=== PATIENT | male | born 1950 | race Caucasian/White ===

== ENCOUNTER 2016-10-13 22:36 | Emergency (ER) | payer OTHER ==
[2016-10-13 22:42] VITALS: BP 128/92; PULSE 88; TEMP 98.9; BMI 20.7
[2016-10-13] MEDS ORDERED: ONDANSETRON 4 MG/2 ML VIAL IVPB ONE (22:47)
[2016-10-13] MEDS ORDERED: SODIUM CHLORIDE 1,000 ML IV ONE (22:47)
--- NOTE | 2016-10-13 22:53 | PDOC ---
History of Present Illness - General Chief Complaint: Nausea/Vomiting Stated Complaint: N/V/D Time Seen by Provider: 10/13/16 22:46 History Source: Patient Exam Limitations: No Limitations - History of Present Illness Initial Comments: 10/13/16 23:02 This is a 66-year-old male with chronic neck pain for which she takes Dilaudid. Patient comes in complaining of nausea vomiting and diarrhea 3 days now. Patient said it is associated with some crampy abdominal pain and the last time he vomited was yesterday however has had multiple episodes of diarrhea today. Patient denies any recent travel or eating out at fast food restaurants. Patient denies anybody else that he knows with similar symptoms. Patient denies any chest pain cough congestion or respiratory symptoms. PAST MEDICAL HISTORY: no significant history PAST SURGICAL HISTORY: no significant history FAMILY HISTORY: no pertinant history MEDICATIONS: reviewed ALLERGIES: As per nursing notes Review of Systems General: No fevers or chills, no weakness, no weight loss HEENT: No change in vision. No sore throat,. No ear pain CardioVascular: No chest pain or shortness of breath Respiratory:No cough, or wheezing. Gastrointestinal: + nausea, + vomitting, + diarrhea no constipation, No rectal bleeding Genitourinary: No dysuria, hematuria, or frequency Musculoskeletal: No joint or muscle pain or swelling Neurologic: No headache, vertigo, dizziness or loss of consciousness Psychiatric: nor depression Skin: No rashes or easy bruising Endocrine: no increased thirst or abnormal weight change Allergic: no skin or latex allergy All other systems reviewed and normal Exam: General: Well-nourished well-developed individual, no acute distress HEENT: Throat: Normal, tonsils normal, no erythema or exudate Neck: Supple, no meningeal signs, no lymphadenopathy Eyes::Pupils equal reactive and round, extraocular motion intact Chest: Nontender to palpation Cardiac: S1-S2 normal, regular rate and rhythm, no murmurs rubs or gallops Respiratory: Lungs clear to auscultation bilateral Abdomen: Soft, no distended, normal bowel sound, mildly tender to palpation LLQ , no guarding or rebound. Extremities: Warm, dry, no cyanosis, clubbing, or edema Skin: No rashes Neuro: Alert and oriented x3, nonfocal exam, grossly intact, normal gait Psych: Normal mood and affect 10/14/16 00:15 Reevaluation patient feels better however he did still have some diarrhea here in the emergency room. Assessment and plan: This is a 66-year-old male who is relatively healthy but does take chronic opioids for chronic pain. Patient said he has not run out of his opioids and in looking at the [facility] prescription monitoring program he did get 120 Dilaudid tablets approximately one and half weeks ago. Patient otherwise denies any Fevers or chills. Patient has been having some intermittent crampy abdominal pain associated with the diarrhea and nausea. Patient's workup was unremarkable his white count was 11.7 but there was no left shift His chemistries were all completely normal Discussed with patient the importance of getting some oral rehydration solutions such as Gatorade or Powerade or Pedialyte and take that to replace his electrolytes and fluids. In addition to that I recommended that he take Imodium for the diarrhea and I am sending him a prescription to his pharmacy of Reglan for the nausea. Otherwise I recommended the Joceline diet. Past History - Past Medical History Allergies/Adverse Reactions: Allergies Allergy/AdvReac Type Severity Reaction Status Date / Time Sulfa (Sulfonamide Allergy Unknown Verified 04/17/16 03:04 Antibiotics) [Sulfa(Sulfonamide Antibiotics)] prednisone AdvReac Verified 04/17/16 03:04 Home Medications: Ambulatory Orders Hydromorphone [Dilaudid -] 4 mg PO Q6H PRN 10/13/16 Metoclopramide HCl [Reglan] 10 mg PO TID PRN #12 tablet 10/14/16 Anemia: No Asthma: No Cancer: No Cardiac Disorders: No CVA: No COPD: No CHF: No Dementia: No Diabetes: No GI Disorders: No Disorders: No HTN: No Hypercholesterolemia: No Kidney Stones: No Liver Disease: Yes (HEP C) Psychiatric Problems: Yes (DEPRESSION) Suicide Attempt (Hx): No (denies) Seizures: No Thyroid Disease: No - Surgical History Abdominal Surgery: Yes (RT INGUINAL HERNIA REPAIR IN 2004) Appendectomy: No Cardiac Surgery: No Cholecystectomy: No Lung Surgery: No Neurologic Surgery: No Orthopedic Surgery: Yes (Lumbar fusion in 12/19, 06/2013 cervical laminecty) - Reproductive History Testicular Surgery: No - Immunization History Immunization Up to Date: Yes - Psycho/Social/Smoking Cessation Hx Anxiety: No Suicidal Ideation: No Smoking Status: Yes Smoking History: Never smoked Have you smoked in the past 12 months: Yes Number of Cigarettes Smoked Daily: 7 If you are a former smoker, when did you quit?: 12/20/2012 Cigars Per Day: 0 'Breaking Loose' booklet given: 03/21/16 Hx Alcohol Use: No Drug/Substance Use Hx: No Substance Use Type: Alcohol Hx Substance Use Treatment: Yes Abd/GI Specific PMHX - Complaint Specific PMHX Hepatitis: Yes (hepatitis c) Pancreatitis: No *Physical Exam - Vital Signs Last Vital Signs Temp Pulse Resp BP Pulse Ox 98.9 F 88 16 128/92 100 10/13/16 22:38 10/13/16 22:38 10/13/16 22:38 10/13/16 22:38 10/13/16 22:38 ED Treatment Course - LABORATORY CBC & Chemistry Diagram: 10/13/16 23:07 10/13/16 23:07 *DC/Admit/Observation/Transfer Diagnosis at time of Disposition: Nausea & vomiting, Diarrhea - Discharge Dispostion Disposition: HOME Condition at time of disposition: Stable Admit: No - Patient Instructions Printed Discharge Instructions: DI for Nausea -- Adult, DI for Diarrhea and Traveler's Diarrhea -- Adult Additional Instructions: You can take Imodium as directed on the bottle for the diarrhea. For nausea take Reglan 1 tablet as often as 3 times a day. Purchase some [id number] Gatorade or Powerade and use it to replace electrolytes and fluids that are loss from diarrhea. Return to the emergency room if you develop fever or worsening symptoms. For nausea take Reglan 1 tablet as often as 3 times a day For food you may have bananas, rice, applesauce, or toast. If no further vomiting for another 8 hours you may have regular food. If you vomit again then nothing to eat or drink for 2 hours. then start back with the clear liquids. Return to the emergency department immediately with ANY new, persistent or worsening symptoms. Continue any medications as previously prescribed by your physician. You should follow up with your primary doctor as soon as possible regarding today's emergency department visit. . Please make sure your doctor reviews the results of your emergency evaluation. Thank you for coming to the Emergency Department today for your care. It was a pleasure to see you today. Please note that your evaluation is INCOMPLETE until you follow-up with your doctor.
[2016-10-13 23:20] LABS: BASOPHIL 3.2 % (0-2.0); EOSINOPHIL 1.9 % (0-4.5); MCH 31.9 pg (25.7-33.7); MCHC 33.4 g/dl (32.0-35.9); MEAN CELL VOLUME 95.7 fl (80-96); MEAN PLT VOLUME 8.4 fl (7.5-11.1); NEUTROPHILS 69.1 % (42.8-82.8); PLATELET COUNT 275 K/MM3 (134-434); RDW 12.8 % (11.9-15.9); WHITE BLOOD COUNT 11.7 K/mm3 (4.0-10.8)
[2016-10-13 23:34] LABS: ALBUMIN 3.8 g/dl (3.5-5.0); ALK PHOS 62 U/L (32-92); ANION GAP 8 (8-16); CALCIUM 9.3 mg/dl (8.4-10.2); CO2 24 mmol/L (22-28); COCKROFT - GAULT 84.49; CREATININE 0.8 mg/dl (0.6-1.3); GLUCOSE,RANDOM 98 mg/dl (74-106); SGOT/AST 23 U/L (10-42); SGPT/ALT 20 U/L (10-40); TOT PROT 6.8 g/dl (6.4-8.3)
[2016-10-13 23:55] LABS: BILIRUBIN,TOTAL 0.3 mg/dl (0.2-1.0)
[2016-10-13] MEDS ORDERED: HYOSCYAMINE SULFATE 0.125 MG *ODT PO ONE (23:57)
[2016-10-13] MEDS ORDERED: LOPERAMIDE HCL 2 MG CAPSULE PO ONE (23:58)
[2016-10-14] MEDS ORDERED: METOCLOPRAMIDE HCL INJECTION 10 MG/2 ML VIAL IVPUSH ONE
[2016-10-14] MEDS ORDERED: LOPERAMIDE HCL 2 MG CAPSULE ONE (00:03)
[2016-10-14] MEDS ORDERED: HYOSCYAMINE SULFATE 0.125 MG *ODT ONE (00:03)
[2016-10-14] MEDS ORDERED: HYDROmorphone HCL CARPU-JECT 1 MG/1 ML DISP.SYRIN IVPUSH ONE (00:07)
[2016-10-14] MEDS ORDERED: HYDROmorphone HCL CARPU-JECT 2 MG/1 ML DISP.SYRIN ONE (00:08)
== END 2016-10-14 00:54 | disposition home or self-care (01) ==
LOC: FER 22:36
PROC: 3E033NZ Introduction of Analgesics, Hypnotics, Sedatives into Peripheral Vein, Percutaneous Approach (ICD-10-PCS; principal; 2016-10-13)
PROC: 3E033GC Introduction of Other Therapeutic Substance into Peripheral Vein, Percutaneous Approach (ICD-10-PCS; 2016-10-13)
PROC: 3E0337Z Introduction of Electrolytic and Water Balance Substance into Peripheral Vein, Percutaneous Approach (ICD-10-PCS; 2016-10-13)
DX: R11.2 Nausea with vomiting, unspecified (principal); R19.7 Diarrhea, unspecified; G89.29 Other chronic pain; B19.20 Unspecified viral hepatitis C without hepatic coma; F32.9 Major depressive disorder, single episode, unspecified; F17.210 Nicotine dependence, cigarettes, uncomplicated
CPT/HCPCS: 36415; 80053; 85025; 99283-25

== ENCOUNTER 2016-11-06 13:53 | Emergency (ER) | payer OTHER ==
[2016-11-06] MEDS ORDERED: cloNIDine HCL 0.1 MG TABLET PO ONE (13:56)
--- NOTE | 2016-11-06 14:00 | PDOC ---
History of Present Illness - General Chief Complaint: Diarrhea Stated Complaint: WITHDRAWING FROM OPIATES Time Seen by Provider: 11/06/16 13:56 History Source: Patient Exam Limitations: No Limitations - History of Present Illness Initial Comments: 11/06/16 13:56 The patient is a 66-year-old male with a significant past medical history of chronic pain, who states that he is awaiting surgery, and "ran out of his daily pain medication" several days ago. He states that he is experiencing nausea, diarrhea, myalgia, chills, rhinorrhea. He states that he has had symptoms of opiate withdrawal in the past and recognizes these as such. He does state that he has breakthrough pain medication which she has been taking occasionally, but knows that he will soon run out of this. He is requesting non-opiate therapy to ease his withdrawal symptoms. He denies illicit/illegal drug use, alcohol use. Past History - Past Medical History Allergies/Adverse Reactions: Allergies Allergy/AdvReac Type Severity Reaction Status Date / Time Sulfa (Sulfonamide Allergy Unknown Verified 04/17/16 03:04 Antibiotics) [Sulfa(Sulfonamide Antibiotics)] prednisone AdvReac Verified 04/17/16 03:04 Home Medications: Ambulatory Orders Hydromorphone [Dilaudid -] 4 mg PO Q6H PRN 10/13/16 Metoclopramide HCl [Reglan] 10 mg PO TID PRN #12 tablet 10/14/16 Anemia: No Asthma: No Cancer: No Cardiac Disorders: No CVA: No COPD: No CHF: No Dementia: No Diabetes: No GI Disorders: No Disorders: No HTN: No Hypercholesterolemia: No Kidney Stones: No Liver Disease: Yes (HEP C) Psychiatric Problems: Yes (DEPRESSION) Suicide Attempt (Hx): No (denies) Seizures: No Thyroid Disease: No - Surgical History Abdominal Surgery: Yes (RT INGUINAL HERNIA REPAIR IN 2004) Appendectomy: No Cardiac Surgery: No Cholecystectomy: No Lung Surgery: No Neurologic Surgery: No Orthopedic Surgery: Yes (Lumbar fusion in 12/19, 06/2013 cervical laminecty) - Reproductive History Testicular Surgery: No - Immunization History Immunization Up to Date: Yes - Psycho/Social/Smoking Cessation Hx Anxiety: No Suicidal Ideation: No Smoking Status: Yes Smoking History: Never smoked Have you smoked in the past 12 months: Yes Number of Cigarettes Smoked Daily: 7 If you are a former smoker, when did you quit?: 12/20/2012 Cigars Per Day: 0 'Breaking Loose' booklet given: 03/21/16 Hx Alcohol Use: No Drug/Substance Use Hx: No Substance Use Type: Alcohol Hx Substance Use Treatment: Yes Review of Systems - Review of Systems Comments:: 11/06/16 13:58 CONSTITUTIONAL: Present: See history of present illness Absent: fatigue EYES: Absent: visual changes ENT: Absent: ear pain, sore throat CARDIOVASCULAR: Absent: chest pain, palpitations, loss of consciousness RESPIRATORY: Absent: cough, SOB GI: Present: See history of present illness Absent: abdominal pain, vomiting, diarrhea GENITOURINARY: Absent: dysuria, frequency, hematuria MUSKULOSKELETAL: Present: See history of present illness SKIN: Absent: rash NEURO: Absent: headache, dizziness *Physical Exam - Physical Exam Comments: 11/06/16 13:58 GENERAL: Well-appearing, well-nourished. No apparent distress. HEENT: Normocephalic, atraumatic. PERRL, EOM intact. CARDIOVASCULAR: Normal S1, S2. Regular rate and rhythm. PULMONARY: Clear to auscultation bilaterally. ABDOMEN: Soft, non-distended, non-tender. EXTREMITIES: Normal ROM in all four extremities. No gross deformities. SKIN: Mild diaphoresis. Warm. No rash NEUROLOGICAL: No focal neurological deficits. Medical Decision Making - Medical Decision Making 11/06/16 13:59 The patient is well-appearing and in no acute distress We will administer 0.1 mg clonidine by mouth and a 0.1 mg patch Will prescribe Motrin and Benadryl for symptomatic treatment as an outpatient Clinical impression: Mild opiate withdrawal I discussed the physical exam findings and final diagnoses with the patient. I answered all of the patient's questions. The patient was satisfied with the care received and felt comfortable with the discharge plan and treatment plan. The patient will call their primary care physician within 24 hours to arrange follow-up and will return to the Emergency Department with any new, persistent or worsening symptoms. 11/06/16 14:00 *DC/Admit/Observation/Transfer Diagnosis at time of Disposition: Opioid dependence with withdrawal - Discharge Dispostion Disposition: HOME Condition at time of disposition: Improved - Patient Instructions Printed Discharge Instructions: DI for Drug Withdrawal Additional Instructions: The patch can be left in place for 3 days Please speak with your primary care physician about further treatment for opiate withdrawal Return to the emergency department immediately with ANY new, persistent or worsening symptoms. You MUST call and follow up with your doctor tomorrow. Please make sure your doctor reviews the results of your emergency department evaluation.
[2016-11-06] MEDS ORDERED: cloNIDine HCL 0.1 MG TABLET ONE (14:11)
[2016-11-06 14:12] VITALS: BP 124/94; PULSE 96; TEMP 99; BMI 20.5
[2016-11-06] MEDS ORDERED: cloNIDine-TTS 0.1 MG/24 HRS PATCH.TDWK TD SCH (14:17)
[2016-11-13] MEDS ORDERED: cloNIDine-TTS 0.1 MG/24 HRS PATCH.TDWK TD SCH (10:00)
== END 2016-11-06 14:25 | disposition home or self-care (01) ==
LOC: FER 13:53
DX: F11.23 Opioid dependence with withdrawal (principal); G89.29 Other chronic pain; F32.9 Major depressive disorder, single episode, unspecified; B19.20 Unspecified viral hepatitis C without hepatic coma
CPT/HCPCS: 99281-25

== ENCOUNTER 2017-02-06 10:47 | Inpatient (IN) | payer OTHER ==
[2017-02-06 11:22] VITALS: BMI 19.2
--- NOTE | 2017-02-06 12:29 | HP ---
COWS - Scale Resting Pulse: 0= [place] 80 or Below Sweatin=Flushed/Facial Moisture Restless Observation: 3= Extraneous Movement Pupil Size: 2= Moderately Dilated Bone or Joint Aches: 2= Severe Diffuse Aches Runny Nose/ Eye Tearin= Runny Nose/Eyes GI Upset > 30mins: 3= Vomiting/Diarrhea Tremor Observation: 2= Slight Tremor Visible Yawning Observation: 2= >3x During Session Anxiety or Irritability: 2=Irritable/Anxious Goose Flesh Skin: 0=Smooth Skin COWS Score: 20 CIWA Score - CIWA Score Nausea/Vomitin Muscle Tremors: 3 Anxiety: 3 Agitation: 3 Paroxysmal Sweats: 2 Orientation: 0-Oriented Tacttile Disturbances: 2-Mild Itch/Numbness/Burn Auditory Disturbances: 2-Mild Harshness/Frighten Visual Disturbances: 2-Mild Sensitivity Headache: 2-Mild CIWA-Ar Total Score: 22 Admission ROS S - HPI Chief Complaint: i need help to stop using dilaudid and valium Allergies/Adverse Reactions: Allergies Allergy/AdvReac Type Severity Reaction Status Date / Time Sulfa (Sulfonamide Allergy Unknown Verified 02/06/17 11:19 Antibiotics) [Sulfa(Sulfonamide Antibiotics)] prednisone AdvReac auditory/visual Verified 02/06/17 11:19 hallucinations History of Present Illness: this 67 years old male with dilaudid and valium dependence,seeking detox,last treatment in [facility] 02/20 hepatitis c s/p fusion of c5,c6.c7 in 11/21 at [facility] nicotine dependence longest period of sobriety Exam Limitations: No Limitations - Ebola screening Have you traveled outside of the country in the last 21 days: No Have you had contact with anyone from an Ebola affected area: No Have you been sick,other than usual withdrawal symptoms: No Do you have a fever: No - Review of Systems Constitutional: Chills, Loss of Appetite, Malaise, Night Sweats, Changes in sleep, Weakness EENT: reports: Tearing, Nose Congestion, Other Respiratory: reports: No Symptoms reported Cardiac: reports: No Symptoms Reported GI: reports: Diarrhea, Nausea, Vomiting, Abdominal cramping : reports: No Symptoms Reported Musculoskeletal: reports: Back Pain, Joint Pain, Muscle Pain, Joint Stiffness Integumentary: reports: Dryness Neuro: reports: Headache (s/p fusion of c4,c5,c6 scar back of neck), Tremors Endocrine: reports: No Symptoms Reported Hematology: reports: No Symptoms Reported Psychiatric: reports: No Sypmtoms Reported, Judgement Intact, Mood/Affect Appropiate, Orientated x3 Patient History - Patient Medical History Hx Anemia: No Hx Asthma: No Hx Chronic Obstructive Pulmonary Disease (COPD): No Hx Cancer: No Hx Cardiac Disorders: No Hx Congestive Heart Failure: No Hx Hypertension: No Hx Hypercholesterolemia: No Hx Pacemaker: No HX Cerebrovascular Accident: No Hx Seizures: No Hx Dementia: No Hx Diabetes: No Hx Gastrointestinal Disorders: No Hx Liver Disease: Yes (HEP C) Hx Genitourinary Disorders: No Hx Sexually Transmitted Disorders: No Hx Renal Disease (ESRD): No Hx Thyroid Disease: No Hx Human Immunodeficiency Virus (HIV): No (NEGATIVE HX last 01/22 negative) Hx Hepatitis C: Yes (not receiving any tx.) Hx Depression: No Hx Suicide Attempt: No Hx Bipolar Disorder: No Hx Schizophrenia: No Other Medical History: no suicidal,no homiicidal - Patient Surgical History Past Surgical History: Yes Hx Neurologic Surgery: No Hx Cataract Extraction: No Hx Cardiac Surgery: No Hx Lung Surgery: No Hx Breast Surgery: No Hx Breast Biopsy: No Hx Abdominal Surgery: Yes (RT INGUINAL HERNIA REPAIR IN 2004) Hx Appendectomy: No Hx Cholecystectomy: No Hx Genitourinary Surgery: No Hx Section: No Hx Orthopedic Surgery: Yes (Lumbar fusion in 12/18, 01/2014/cervical laminrectomy in 06/2013, 11/2016) Hx Hysterectomy: No Other Surgical History: PTL GLOSSECTOMY; PALATO; SINUS SX;X 5 TONSILLECTOMY Anesthesia Reaction: No - PPD History Previous Implant?: Yes Implanted On Prior [facility] Admission?: Yes Date: 08/23/15 Results: 0 mm PPD to be Administered?: Yes - Smoking Cessation Smoking history: Current every day smoker Have you smoked in the past 12 months: Yes Aproximately how many cigarettes per day: 20 If you are a former smoker, when did you quit?: 12/20/2012 Cigars Per Day: 0 Hx Chewing Tobacco Use: No Initiated information on smoking cessation: Yes 'Breaking Loose' booklet given: 02/06/17 - Substance & Tx. History Hx Alcohol Use: No Hx Substance Use: Yes Substance Use Type: Opiates, Tranquilizers Hx Substance Use Treatment: Yes (frederic ) - Substances Abused Dilaudid Route: Oral Frequency: Daily Amount used: 6 tabs. (2 mg.) Age of first use: 63 Date of Last Use: 02/05/17 valium Route: Oral Frequency: Daily Amount used: 30 mgs Age of first use: 63 Date of Last Use: 02/04/17 Family Disease History - Family Disease History Family Disease History: Respiratory: Father (lung ca , alcoholic,), Other: Father, Brother (testicular ca, alcoholic), Sister (alcoholic) Admission Physical Exam [facility] - Vital Signs Vital Signs: Vital Signs - 24 hr 02/06/17 11:19 Temperature 97 F L Pulse Rate 71 Respiratory 20 Rate Blood Pressure 128/81 - Physical General Appearance: Yes: Moderate Distress, Tremorous, Irritable, Sweating, Anxious HEENTM: Yes: Normal ENT Inspection, RUBENS, Pharynx Normal, Other (scar in the back of neck) Respiratory: Yes: Lungs Clear, Normal Breath Sounds, No Respiratory Distress Neck: Yes: Within Normal Limits, Supple, Trachea in good position Breast: Yes: Within Normal Limits Cardiology: Yes: Within Normal Limits, Regular Rhythm, Regular Rate, S1, S2 Abdominal: Yes: Normal Bowel Sounds, Flat, Soft, Organomegaly, Other Genitourinary: Yes: Within Normal Limits Back: Yes: Muscle Spasm, Surgical Scar Musculoskeletal: Yes: full range of Motion, Back pain, Muscle Pain Extremities: Yes: Normal Inspection, Normal Range of Motion, Tremors Neurological: Yes: project analyst II-XII NML intact, Alert, Motor Strength 5/5 Integumentary: Yes: Dry Lymphatic: Yes: Within Normal Limits - Diagnostic (1) Opioid dependence with withdrawal Current Visit: No Status: Chronic (2) Uncomplicated sedative, hypnotic or anxiolytic withdrawal Current Visit: Yes Status: Acute (3) Hepatitis C Current Visit: Yes Status: Acute (4) Cervical radiculopathy Current Visit: No Status: Chronic (5) Chronic low back pain Current Visit: No Status: Chronic Qualifiers: (6) Nicotine dependence Current Visit: No Status: Chronic Qualifiers: Nicotine product type: cigarettes Substance use status: uncomplicated Qualified Code(s): F17.210 - Nicotine dependence, cigarettes, uncomplicated; F17.210 - Nicotine dependence, cigarettes, uncomplicated (7) Sedative, hypnotic or anxiolytic dependence with withdrawal, uncomplicated Current Visit: No Status: Chronic (8) arthritis Current Visit: No Status: Chronic (9) History of neck surgery Current Visit: Yes Status: Acute (10) History of back surgery Current Visit: Yes Status: Acute Cleared for Admission [facility] - Detox or Rehab [facility] Level of Care: Medically Managed Detox Regimen/Protocol: Methadone/Valium [facility] Breath Alcohol Content Breath Alcohol Content: 0 Urine Drug Screen - Results Drug Screen Negative: No Urine Drug Screen Results: OPI-Opiates, BZO-Benzodiazepines
[2017-02-06] MEDS ORDERED: MENTHOL/PHENOL 1 EACH UD MM PRN (12:45)
[2017-02-06] MEDS ORDERED: ACETAMINOPHEN 325 MG TABLET (FP) PO PRN (12:45)
[2017-02-06] MEDS ORDERED: P-EPHED 60MG/TRIPROLIDI 2.5MG TABLET PO PRN (12:45)
[2017-02-06] MEDS ORDERED: hydrOXYzine PAMOATE 25 MG CAPSULE (FP) PO PRN (12:45)
[2017-02-06] MEDS ORDERED: guaiFENesin/D-METHORPHAN HB 10 ML UNIT-DOSE CUPS PO PRN (12:45)
[2017-02-06] MEDS ORDERED: IBUPROFEN 400 MG TABLET (FP) PO PRN (12:45)
[2017-02-06] MEDS ORDERED: MAGNESIUM HYDROX 2400MG/30ML ORAL SUSPENSION 30 ML CUP PO PRN (12:45)
[2017-02-06] MEDS ORDERED: LOPERAMIDE HCL 2 MG CAPSULE PO PRN (12:45)
[2017-02-06] MEDS ORDERED: MAGNESIUM CITRATE 300 ML BOTTLE PO PRN (12:45)
[2017-02-06] MEDS ORDERED: MAG HYDROX/AL HYDROX/SIMETH 30 ML UNIT-DOSE CUP PO PRN (12:45)
[2017-02-06] MEDS ORDERED: diazePAM 5 MG TABLET PO ONE (13:35)
[2017-02-06] MEDS ORDERED: METHADONE HCL 10 MG TABLET (FOR DETOX USE ONLY) PO ONE ×2 (13:36→23:00)
[2017-02-06] MEDS: NICOTINE 21 MG/24 HOURS TOPICAL PATCH TD SCH (14:25)
[2017-02-06] MEDS: diazePAM 5 MG TABLET PO PRN (17:40)
[2017-02-06 18:45] LABS: URINE APPEARANCE CLEAR; URINE BILIRUBIN NEGATIVE (NEGATIVE); URINE BLOOD NEGATIVE (NEGATIVE); URINE COLOR YELLOW; URINE GLUCOSE (UA) NEGATIVE (NEGATIVE); URINE KETONE NEGATIVE (NEGATIVE); URINE LEUK ESTERASE NEGATIVE (NEGATIVE); URINE NITRITE NEGATIVE (NEGATIVE); URINE PROTEIN NEGATIVE (NEGATIVE); URINE UROBILINOGEN NEGATIVE mg/dL (0.2-1.0)
[2017-02-06] MEDS: NICOTINE POLACRILEX 2 MG GUM BUC PRN (21:31)
[2017-02-06] MEDS: diazePAM 5 MG TABLET PO SCH (22:20)
[2017-02-06] MEDS: THIAMINE HCL 100 MG TABLET (FP) PO SCH (22:20)
[2017-02-06] MEDS: diphenhydrAMINE HCL 50 MG CAPSULE PO PRN (22:21)
[2017-02-07] MEDS: diazePAM 5 MG TABLET PO PRN ×4 (01:35→19:37)
[2017-02-07] MEDS: diazePAM 5 MG TABLET PO SCH ×3 (05:43→22:20)
[2017-02-07] MEDS: NICOTINE POLACRILEX 2 MG GUM BUC PRN ×5 (06:01→22:29)
[2017-02-07] MEDS: PRENATAL VITAMINS W/ FOLIC ACID TABLET (FP) PO SCH (09:38)
[2017-02-07 09:39] LABS: MCH 31.7 pg (25.7-33.7); MCHC 33.6 g/dl (32.0-35.9); MEAN CELL VOLUME 94.3 fl (80-96); MEAN PLT VOLUME 9.4 fl (7.5-11.1); PLATELET COUNT 265 K/MM3 (134-434); RDW 13.8 % (11.9-15.9); WHITE BLOOD COUNT 7.5 K/mm3 (4.0-10.0)
[2017-02-07] MEDS: NICOTINE 21 MG/24 HOURS TOPICAL PATCH TD SCH (09:39)
--- NOTE | 2017-02-07 09:54 | EKG ---
Test Reason : Blood Pressure : / mmHG Vent. Rate : 067 BPM Atrial Rate : 067 BPM P-R Int : 152 ms QRS Dur : 084 ms QT Int : 426 ms P-R-T Axes : 076 078 051 degrees QTc Int : 450 ms SINUS RHYTHM WITH PREMATURE ATRIAL COMPLEXES POSSIBLE LEFT ATRIAL ENLARGEMENT LEFT VENTRICULAR HYPERTROPHY ABNORMAL ECG WHEN COMPARED WITH ECG OF 23-NOV-2010 16:34, PREMATURE ATRIAL COMPLEXES ARE NOW PRESENT Confirmed by JONATHAN GAYLE, ABDOULAYE ([id number]) on 02/07/2017 9:54:23 AM Referred By: Confirmed By:ABDOULAYE CASTILLO MD
[2017-02-07] MEDS ORDERED: METHADONE HCL 10 MG TABLET (FOR DETOX USE ONLY) PO SCH (10:00)
[2017-02-07 10:20] LABS: ALBUMIN 3.9 g/dl (3.4-5.0); ALK PHOS 72 U/L (45-117); ANION GAP 6 (8-16); BILIRUBIN,TOTAL 1.4 mg/dL (0.2-1.0); CALCIUM 9.1 mg/dL (8.5-10.1); CO2 26 mmol/L (21-32); CREATININE 0.7 mg/dL (0.7-1.3); GLUCOSE,RANDOM 153 mg/dL (74-106); SGOT/AST 18 U/L (15-37); SGPT/ALT 21 U/L (12-78); TOT PROT 7.2 g/dl (6.4-8.2)
--- NOTE | 2017-02-07 11:58 | PN ---
[facility] CIWA - CIWA Score Nausea/Vomitin-Mild Nausea/No Vomiting Muscle Tremors: None Anxiety: 5 Agitation: 4-Moderately Restless Paroxysmal Sweats: 3 Orientation: 0-Oriented Tacttile Disturbances: 1-Very Mild Itch/Numbness Auditory Disturbances: 2-Mild Harshness/Frighten Visual Disturbances: 2-Mild Sensitivity Headache: 0-None Present CIWA-Ar Total Score: 18 BHS COWS - Scale Resting Pulse: 1= [place] 81-100 Sweatin= Chills/Flushing Restless Observation: 1= Difficult to Sit Still Pupil Size: 0= Normal to Room Light Bone or Joint Aches: 2= Severe Diffuse Aches Runny Nose/ Eye Tearin= None GI Upset > 30mins: 2= Nausea/Diarrhea Tremor Observation of Outstretched Hands: 0= None Yawning Observation: 1= 1-2x During Session Anxiety or Irritability: 2=Irritable/Anxious Goose Flesh Skin: 3=Piloerection COWS Score: 13 S Progress Note (SOAP) Subjective: Anxious, Tremors, Sweating, Chills, interrupted sleep, Diarrhea, Body Aches, Stomach Cramping. Objective: PT. A & O X 3, OBSERVED AMBULATING ON UNIT. NO ACUTE DISTRESS. 02/07/17 11:57 Vital Signs Temperature 97 F L 02/07/17 09:22 Pulse Rate 83 02/07/17 09:22 Respiratory Rate 18 02/07/17 09:22 Blood Pressure 136/81 02/07/17 09:22 O2 Sat by Pulse Oximetry (%) Laboratory Tests 02/06/17 02/07/17 02/07/17 17:45 06:00 06:20 WBC 7.5 RBC 4.50 Hgb 14.3 Hct 42.4 MCV 94.3 MCH 31.7 MCHC 33.6 RDW 13.8 Plt Count 265 D MPV 9.4 Sodium 138 Potassium 4.3 Chloride 106 Carbon Dioxide 26 Anion Gap 6 L BUN 16 Creatinine 0.7 D Creat Clearance w eGFR > 60 Random Glucose 153 H D Calcium 9.1 Total Bilirubin 1.4 H D AST 18 D ALT 21 D Alkaline Phosphatase 72 Total Protein 7.2 Albumin 3.9 Urine Color Yellow Urine Appearance Clear Urine pH 5.0 Ur Specific [place] 1.020 Urine Protein Negative Urine Glucose (UA) Negative Urine Ketones Negative Urine Blood Negative Urine Nitrite Negative Urine Bilirubin Negative Urine Urobilinogen Negative RPR Titer 02/07/17 06:20 WBC RBC Hgb Hct MCV MCH MCHC RDW Plt Count MPV Sodium Potassium Chloride Carbon Dioxide Anion Gap BUN Creatinine Creat Clearance w eGFR Random Glucose Calcium Total Bilirubin AST ALT Alkaline Phosphatase Total Protein Albumin Urine Color Urine Appearance Urine pH Ur Specific [place] Urine Protein Urine Glucose (UA) Urine Ketones Urine Blood Urine Nitrite Urine Bilirubin Urine Urobilinogen RPR Titer Nonreactive labs noted. Assessment: 02/07/17 11:57 WITHDRAWAL SYMPTOMS. Plan: CONTINUE DETOX. BGM ACBK FOR ELEAVTED ADMISSION RANDOM GLUCOSE LEVEL. INCREASE DAILY PO FLUID INTAKE.
[2017-02-07] MEDS: diphenhydrAMINE HCL 50 MG CAPSULE PO PRN (22:20)
[2017-02-07] MEDS: THIAMINE HCL 100 MG TABLET (FP) PO SCH (22:20)
[2017-02-08] MEDS: diazePAM 5 MG TABLET PO PRN ×4 (00:55→16:41)
[2017-02-08] MEDS: NICOTINE POLACRILEX 2 MG GUM BUC PRN ×5 (06:13→16:42)
[2017-02-08] MEDS: NICOTINE 21 MG/24 HOURS TOPICAL PATCH TD SCH (10:26)
[2017-02-08] MEDS: PRENATAL VITAMINS W/ FOLIC ACID TABLET (FP) PO SCH (10:26)
[2017-02-08] MEDS: METHADONE HCL 5 MG TABLET (FOR DETOX USE ONLY) PO SCH (10:27)
[2017-02-08] MEDS: diazePAM 5 MG TABLET PO SCH ×2 (10:27→22:25)
--- NOTE | 2017-02-08 12:50 | PN ---
S CIWA - CIWA Score Nausea/Vomitin-No Nausea/No Vomiting Muscle Tremors: 4-Moderate,w/Arms Extend Anxiety: 5 Agitation: 3 Paroxysmal Sweats: 3 Orientation: 0-Oriented Tacttile Disturbances: 2-Mild Itch/Numbness/Burn Auditory Disturbances: 1-Very Mild Visual Disturbances: 2-Mild Sensitivity Headache: 0-None Present CIWA-Ar Total Score: 20 BHS COWS - Scale Resting Pulse: 1= [place] 81-100 Sweatin= Chills/Flushing Restless Observation: 1= Difficult to Sit Still Pupil Size: 0= Normal to Room Light Bone or Joint Aches: 0= None Runny Nose/ Eye Tearin= Runny Nose/Eyes GI Upset > 30mins: 0= None Tremor Observation of Outstretched Hands: 2= Slight Tremor Visible Yawning Observation: 0= None Anxiety or Irritability: 2=Irritable/Anxious Goose Flesh Skin: 3=Piloerection COWS Score: 12 BHS Progress Note (SOAP) Subjective: Tremors, Hot / Cold sensations, Sweating, Anxious. Objective: PT. A & O X 3, OBSERVED AMBULATING ON UNIT. NO ACUTE DISTRESS. PT. DENIES CHEST PAIN. 02/08/17 12:46 Vital Signs Temperature 97.8 F 02/08/17 06:37 Pulse Rate 86 02/08/17 06:37 Respiratory Rate 18 02/08/17 06:37 Blood Pressure 136/90 02/08/17 06:37 O2 Sat by Pulse Oximetry (%) Laboratory Tests 02/06/17 02/07/17 02/07/17 17:45 06:00 06:20 WBC 7.5 RBC 4.50 Hgb 14.3 Hct 42.4 MCV 94.3 MCH 31.7 MCHC 33.6 RDW 13.8 Plt Count 265 D MPV 9.4 Sodium 138 Potassium 4.3 Chloride 106 Carbon Dioxide 26 Anion Gap 6 L BUN 16 Creatinine 0.7 D Creat Clearance w eGFR > 60 POC Glucometer Random Glucose 153 H D Calcium 9.1 Total Bilirubin 1.4 H D AST 18 D ALT 21 D Alkaline Phosphatase 72 Total Protein 7.2 Albumin 3.9 Urine Color Yellow Urine Appearance Clear Urine pH 5.0 Ur Specific [place] 1.020 Urine Protein Negative Urine Glucose (UA) Negative Urine Ketones Negative Urine Blood Negative Urine Nitrite Negative Urine Bilirubin Negative Urine Urobilinogen Negative RPR Titer 02/07/17 02/07/17 02/07/17 06:20 16:29 21:20 WBC RBC Hgb Hct MCV MCH MCHC RDW Plt Count MPV Sodium Potassium Chloride Carbon Dioxide Anion Gap BUN Creatinine Creat Clearance w eGFR POC Glucometer 178 146 Random Glucose Calcium Total Bilirubin AST ALT Alkaline Phosphatase Total Protein Albumin Urine Color Urine Appearance Urine pH Ur Specific [place] Urine Protein Urine Glucose (UA) Urine Ketones Urine Blood Urine Nitrite Urine Bilirubin Urine Urobilinogen RPR Titer Nonreactive 02/08/17 06:10 WBC RBC Hgb Hct MCV MCH MCHC RDW Plt Count MPV Sodium Potassium Chloride Carbon Dioxide Anion Gap BUN Creatinine Creat Clearance w eGFR POC Glucometer 100 Random Glucose Calcium Total Bilirubin AST ALT Alkaline Phosphatase Total Protein Albumin Urine Color Urine Appearance Urine pH Ur Specific [place] Urine Protein Urine Glucose (UA) Urine Ketones Urine Blood Urine Nitrite Urine Bilirubin Urine Urobilinogen RPR Titer LABS NOTED. Assessment: 02/08/17 12:46 WITHDRAWAL SYMPTOMS. Plan: CONTINUE DETOX. INCREASE DAILY PO FLUID INTAKE.
[2017-02-08] MEDS: THIAMINE HCL 100 MG TABLET (FP) PO SCH (22:25)
[2017-02-08] MEDS: diphenhydrAMINE HCL 50 MG CAPSULE PO PRN (22:26)
[2017-02-09] MEDS: diazePAM 5 MG TABLET PO PRN ×3 (00:30→12:44)
[2017-02-09] MEDS: NICOTINE POLACRILEX 2 MG GUM BUC PRN ×3 (06:07→17:40)
[2017-02-09] MEDS: diazePAM 5 MG TABLET PO SCH ×2 (10:11→22:23)
[2017-02-09] MEDS: PRENATAL VITAMINS W/ FOLIC ACID TABLET (FP) PO SCH (10:11)
[2017-02-09] MEDS: METHADONE HCL 5 MG TABLET (FOR DETOX USE ONLY) PO SCH (10:11)
[2017-02-09] MEDS: NICOTINE 21 MG/24 HOURS TOPICAL PATCH TD SCH (10:12)
--- NOTE | 2017-02-09 12:11 | PN ---
BHS Progress Note (SOAP) Subjective: Stomach cramping, Anxious, Sweating, Chills, Tremors. Objective: PT. A & O X 2 (DISORIENTED ABOUT DAY / DATE). 02/09/17 12:07 Vital Signs Temperature 97.0 F L 02/09/17 09:21 Pulse Rate 95 H 02/09/17 09:21 Respiratory Rate 20 02/09/17 09:21 Blood Pressure 124/78 02/09/17 09:21 O2 Sat by Pulse Oximetry (%) Laboratory Tests 02/06/17 02/07/17 02/07/17 17:45 06:00 06:20 WBC 7.5 RBC 4.50 Hgb 14.3 Hct 42.4 MCV 94.3 MCH 31.7 MCHC 33.6 RDW 13.8 Plt Count 265 D MPV 9.4 Sodium 138 Potassium 4.3 Chloride 106 Carbon Dioxide 26 Anion Gap 6 L BUN 16 Creatinine 0.7 D Creat Clearance w eGFR > 60 POC Glucometer Random Glucose 153 H D Calcium 9.1 Total Bilirubin 1.4 H D AST 18 D ALT 21 D Alkaline Phosphatase 72 Total Protein 7.2 Albumin 3.9 Urine Color Yellow Urine Appearance Clear Urine pH 5.0 Ur Specific [place] 1.020 Urine Protein Negative Urine Glucose (UA) Negative Urine Ketones Negative Urine Blood Negative Urine Nitrite Negative Urine Bilirubin Negative Urine Urobilinogen Negative RPR Titer 02/07/17 02/07/17 02/07/17 06:20 16:29 21:20 WBC RBC Hgb Hct MCV MCH MCHC RDW Plt Count MPV Sodium Potassium Chloride Carbon Dioxide Anion Gap BUN Creatinine Creat Clearance w eGFR POC Glucometer 178 146 Random Glucose Calcium Total Bilirubin AST ALT Alkaline Phosphatase Total Protein Albumin Urine Color Urine Appearance Urine pH Ur Specific [place] Urine Protein Urine Glucose (UA) Urine Ketones Urine Blood Urine Nitrite Urine Bilirubin Urine Urobilinogen RPR Titer Nonreactive 02/08/17 02/09/17 06:10 06:55 WBC RBC Hgb Hct MCV MCH MCHC RDW Plt Count MPV Sodium Potassium Chloride Carbon Dioxide Anion Gap BUN Creatinine Creat Clearance w eGFR POC Glucometer 100 96 Random Glucose Calcium Total Bilirubin AST ALT Alkaline Phosphatase Total Protein Albumin Urine Color Urine Appearance Urine pH Ur Specific [place] Urine Protein Urine Glucose (UA) Urine Ketones Urine Blood Urine Nitrite Urine Bilirubin Urine Urobilinogen RPR Titer LABS NOTED. Assessment: 02/09/17 12:10 WITHDRAWAL SYMPTOMS. Plan: CONTINUE DETOX.
[2017-02-09] MEDS: THIAMINE HCL 100 MG TABLET (FP) PO SCH (22:23)
[2017-02-09] MEDS: diphenhydrAMINE HCL 50 MG CAPSULE PO PRN (22:23)
[2017-02-10] MEDS: NICOTINE POLACRILEX 2 MG GUM BUC PRN (05:44)
[2017-02-10 06:58] VITALS: BP 114/66; PULSE 83; TEMP 96.9
[2017-02-10] MEDS ORDERED: diazePAM 5 MG TABLET PO SCH (10:00)
[2017-02-10] MEDS ORDERED: METHADONE HCL 10 MG TABLET (FOR DETOX USE ONLY) PO SCH (10:00)
--- NOTE | 2017-02-10 11:58 | DS ---
[facility] Detox Discharge Summary Admission Date: 02/06/17 Discharge Date: 02/10/17 - History Present History: Opioid Dependence, Sedative Dependence Additional Comments: PATIENT DOES NOT WISH TO STAY TO COMPLETE DETOX REGIMEN. RISKS OF NOT COMPLETING DETOX PROTOCOL EXPLAINED TO PATIENT. PATIENT ADVISED TO GO IMMEDIATELY TO NEAREST ER SHOULD ANY INTOLERABLE DETOX SYMPTOMS DEVELOP AT ANY TIME. PATIENT LEFT UNIT IN STABLE MEDICAL CONDITION. Pertinent Past History: Hep C, Cervical Radiculopathy, History of Neck Surgery, History of Back surgery , Nicotine Dependence, Arthritis, Chronic Low Back Pain. - Physical Exam Results Vital Signs: Vital Signs Temperature 96.9 F L 02/10/17 06:58 Pulse Rate 83 02/10/17 06:58 Respiratory Rate 16 02/10/17 06:58 Blood Pressure 114/66 02/10/17 06:58 O2 Sat by Pulse Oximetry (%) Pertinent Admission Physical Exam Findings: WITHDRAWAL SYMPTOMS. Laboratory Tests 02/06/17 02/07/17 02/07/17 17:45 06:00 06:20 WBC 7.5 RBC 4.50 Hgb 14.3 Hct 42.4 MCV 94.3 MCH 31.7 MCHC 33.6 RDW 13.8 Plt Count 265 D MPV 9.4 Sodium 138 Potassium 4.3 Chloride 106 Carbon Dioxide 26 Anion Gap 6 L BUN 16 Creatinine 0.7 D Creat Clearance w eGFR > 60 POC Glucometer Random Glucose 153 H D Calcium 9.1 Total Bilirubin 1.4 H D AST 18 D ALT 21 D Alkaline Phosphatase 72 Total Protein 7.2 Albumin 3.9 Urine Color Yellow Urine Appearance Clear Urine pH 5.0 Ur Specific [place] 1.020 Urine Protein Negative Urine Glucose (UA) Negative Urine Ketones Negative Urine Blood Negative Urine Nitrite Negative Urine Bilirubin Negative Urine Urobilinogen Negative RPR Titer 02/07/17 02/07/17 02/07/17 06:20 16:29 21:20 WBC RBC Hgb Hct MCV MCH MCHC RDW Plt Count MPV Sodium Potassium Chloride Carbon Dioxide Anion Gap BUN Creatinine Creat Clearance w eGFR POC Glucometer 178 146 Random Glucose Calcium Total Bilirubin AST ALT Alkaline Phosphatase Total Protein Albumin Urine Color Urine Appearance Urine pH Ur Specific [place] Urine Protein Urine Glucose (UA) Urine Ketones Urine Blood Urine Nitrite Urine Bilirubin Urine Urobilinogen RPR Titer Nonreactive 02/08/17 02/09/17 02/10/17 06:10 06:55 05:52 WBC RBC Hgb Hct MCV MCH MCHC RDW Plt Count MPV Sodium Potassium Chloride Carbon Dioxide Anion Gap BUN Creatinine Creat Clearance w eGFR POC Glucometer 100 96 100 Random Glucose Calcium Total Bilirubin AST ALT Alkaline Phosphatase Total Protein Albumin Urine Color Urine Appearance Urine pH Ur Specific [place] Urine Protein Urine Glucose (UA) Urine Ketones Urine Blood Urine Nitrite Urine Bilirubin Urine Urobilinogen RPR Titer LABS NOTED. - Treatment Hospital Course: Detoxed Safely - Medication Discharge Medications: Ambulatory Orders NK [No Known Home Medication] 02/06/17 - Diagnosis (1) Hepatitis C Status: Chronic Qualifiers: Viral hepatitis chronicity: chronic Hepatic coma status: without hepatic coma Qualified Code(s): B18.2 - Chronic viral hepatitis C; B18.2 - Chronic viral hepatitis C; B18.2 - Chronic viral hepatitis C; B18.2 - Chronic viral hepatitis C (2) History of back surgery Status: Chronic (3) History of neck surgery Status: Chronic (4) Uncomplicated sedative, hypnotic or anxiolytic withdrawal Status: Acute (5) Cervical radiculopathy Status: Chronic (6) Chronic low back pain Status: Chronic Qualifiers: Back pain laterality: unspecified Sciatica presence: unspecified whether sciatica present Qualified Code(s): M54.5 - Low back pain; M54.5 - Low back pain; G89.29 - Other chronic pain; G89.29 - Other chronic pain (7) Nicotine dependence Status: Chronic Qualifiers: Nicotine product type: cigarettes Substance use status: uncomplicated Qualified Code(s): F17.210 - Nicotine dependence, cigarettes, uncomplicated; F17.210 - Nicotine dependence, cigarettes, uncomplicated (8) Opioid dependence with withdrawal Status: Acute (9) Sedative, hypnotic or anxiolytic dependence with withdrawal, uncomplicated Status: Acute (10) arthritis Status: Chronic - AMA Did Patient Leave Against Medical Advice: Yes (PATIENT DID NOT WISH TO STAY TO COMPLETE DETOX REGIMEN.)
[2017-02-11] MEDS ORDERED: METHADONE HCL 5 MG TABLET (FOR DETOX USE ONLY) PO SCH (06:00)
== END 2017-02-10 09:45 | disposition left against medical advice (07) | DRG 894 ==
LOC: YASAS 10:47 → Y3N 12:52
PROVIDERS: ADMIT Internal Medicine; ATTEND Internal Medicine
PROC: HZ2ZZZZ Detoxification Services for Substance Abuse Treatment (ICD-10-PCS; principal; 2017-02-06)
DX: F19.230 Other psychoactive substance dependence with withdrawal, uncomplicated (principal); F11.23 Opioid dependence with withdrawal; F13.230 Sedative, hypnotic or anxiolytic dependence with withdrawal, uncomplicated; F17.210 Nicotine dependence, cigarettes, uncomplicated; M54.5 Low back pain; G89.29 Other chronic pain; M19.90 Unspecified osteoarthritis, unspecified site; B18.2 Chronic viral hepatitis C; M54.12 Radiculopathy, cervical region; Z98.890 Other specified postprocedural states; Z88.2 Allergy status to sulfonamides; Z88.6 Allergy status to analgesic agent; Z98.1 Arthrodesis status
CPT/HCPCS: 36415; 80053; 81003; 85027; 86593; 93005; 93010

== ENCOUNTER 2018-11-19 10:07 | Inpatient (IN) | payer OTHER ==
[2018-11-19 10:50] VITALS: BMI 18.4
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
[2018-11-19] MEDS ORDERED: MAG HYDROX/AL HYDROX/SIMETH 30 ML UNIT-DOSE CUP PO PRN (15:22)
[2018-11-19] MEDS ORDERED: MAGNESIUM HYDROX 2400MG/30ML ORAL SUSPENSION 30 ML CUP PO PRN (15:22)
[2018-11-19] MEDS ORDERED: cloNIDine HCL 0.1 MG TABLET PO PRN (15:22)
[2018-11-19] MEDS ORDERED: MAGNESIUM CITRATE 300 ML BOTTLE PO PRN (15:22)
[2018-11-19] MEDS ORDERED: BISMUTH SUBSALICYLATE 524 MG/30 ML UD PO PRN (15:22)
[2018-11-19] MEDS ORDERED: ACETAMINOPHEN 325 MG TABLET (FP) PO PRN ×2 (15:22)
[2018-11-19] MEDS ORDERED: hydrOXYzine HCL 25 MG TABLET (FP) PO PRN (15:22)
[2018-11-19] MEDS ORDERED: METHOCARBAMOL 500 MG TABLET PO PRN (15:22)
[2018-11-19] MEDS ORDERED: MENTHOL/PHENOL 1 EACH UD MM PRN (15:22)
[2018-11-19] MEDS ORDERED: MELATONIN 5 MG TABLETS PO PRN (15:22)
[2018-11-19] MEDS ORDERED: METHADONE HCL 10 MG TABLET (FOR DETOX USE ONLY) PO ONE (16:45)
[2018-11-19] MEDS: diazePAM 5 MG TABLET PO PRN ×2 (17:11→21:11)
[2018-11-19] MEDS: THIAMINE HCL 100 MG TABLET (FP) PO SCH (21:11)
[2018-11-20] MEDS: diazePAM 5 MG TABLET PO PRN ×5 (01:18→21:52)
--- NOTE | 2018-11-20 09:39 | PN ---
BHS COWS - Scale Resting Pulse: 0= [place] 80 or Below Sweatin= Chills/Flushing Restless Observation: 0= Sits Still Pupil Size: 1= Pupils >than Normal Bone or Joint Aches: 2= Severe Diffuse Aches Runny Nose/ Eye Tearin= Nasal Congestion GI Upset > 30mins: 1= Stomach Cramp Tremor Observation of Outstretched Hands: 2= Slight Tremor Visible Yawning Observation: 2= >3x During Session Anxiety or Irritability: 2=Irritable/Anxious Goose Flesh Skin: 0=Smooth Skin COWS Score: 12 S Progress Note (SOAP) Subjective: 68 years old male admitted on 11/19/18 for opiate withdrawal sx medical history of chronic pain treated with hydromorphone 6 mg q6h daily, ambulating with walker feeling tired resting on bed encourage oral fluid Objective: 11/20/18 09:49 Vital Signs Temperature 98.3 F 11/20/18 09:15 Pulse Rate 64 11/20/18 09:15 Respiratory Rate 18 11/20/18 09:15 Blood Pressure 98/68 11/20/18 09:15 O2 Sat by Pulse Oximetry (%) 11/20/18 09:49 lab pending Assessment: 11/20/18 09:49 opiate withdrawal sx Plan: continue opiate detox
[2018-11-20] MEDS ORDERED: METHADONE (DETOX) 20 MG, METHADONE (DETOX) 5 MG PO ONE (10:00)
[2018-11-20] MEDS ORDERED: METHADONE HCL 5 MG TABLET (FOR DETOX USE ONLY) ONE (10:11)
[2018-11-20] MEDS ORDERED: METHADONE HCL 10 MG TABLET (FOR DETOX USE ONLY) ONE (10:11)
[2018-11-20] MEDS: PRENATAL VITAMINS W/ FOLIC ACID TABLET (FP) PO SCH (10:12)
[2018-11-20 12:13] LABS: HEMATOCRIT 40.3 % (35.4-49); HEMOGLOBIN 13.5 GM/dL (11.7-16.9); MCH 30.5 pg (25.7-33.7); MCHC 33.5 g/dl (32.0-35.9); MEAN PLT VOLUME 9.8 fl (7.5-11.1); RBC 4.43 M/mm3 (4.00-5.60); RDW 14.6 % (11.9-15.9); WHITE BLOOD COUNT 6.7 K/mm3 (4.0-10.0)
[2018-11-20 12:48] LABS: BILIRUBIN,TOTAL 0.3 mg/dL (0.2-1); BLOOD UREA NITROGEN 14.2 mg/dL (7-18); CALCIUM 9.2 mg/dL (8.5-10.1); CREATININE 0.8 mg/dL (0.55-1.3); POTASSIUM 4.6 mmol/L (3.5-5.1); TOT PROT 7.6 g/dl (6.4-8.2)
[2018-11-20 13:16] LABS: PLATELET COUNT 264 K/MM3 (134-434)
[2018-11-20 14:30] LABS: URINE APPEARANCE CLEAR; URINE BILIRUBIN NEGATIVE (NEGATIVE); URINE COLOR YELLOW; URINE GLUCOSE (UA) NEGATIVE (NEGATIVE); URINE KETONE NEGATIVE (NEGATIVE); URINE LEUK ESTERASE NEGATIVE (NEGATIVE); URINE NITRITE NEGATIVE (NEGATIVE); URINE PROTEIN NEGATIVE (NEGATIVE); URINE UROBILINOGEN 0.2 mg/dL (0.2-1.0)
[2018-11-20] MEDS ORDERED: BUPRENORPHINE/NALOXONE 8 MG/2 MG FILM PACKET ONE (15:06)
[2018-11-20] MEDS: THIAMINE HCL 100 MG TABLET (FP) PO SCH (21:52)
[2018-11-21] MEDS: diazePAM 5 MG TABLET PO PRN ×5 (02:54→21:16)
[2018-11-21] MEDS ORDERED: LOPERAMIDE HCL 1 MG/5 ML UNIT DOSE CUP PO ONE (09:50)
[2018-11-21] MEDS ORDERED: METHADONE HCL 10 MG TABLET (FOR DETOX USE ONLY) PO ONE (10:00)
[2018-11-21] MEDS: PRENATAL VITAMINS W/ FOLIC ACID TABLET (FP) PO SCH (10:15)
--- NOTE | 2018-11-21 11:46 | PN ---
BHS COWS - Scale Resting Pulse: 0= [place] 80 or Below Sweatin= Chills/Flushing Restless Observation: 1= Difficult to Sit Still Pupil Size: 1= Pupils >than Normal Bone or Joint Aches: 1= Mild Discomfort Runny Nose/ Eye Tearin= Nasal Congestion GI Upset > 30mins: 2= Nausea/Diarrhea Tremor Observation of Outstretched Hands: 2= Slight Tremor Visible Yawning Observation: 0= None Anxiety or Irritability: 0= None Goose Flesh Skin: 0=Smooth Skin COWS Score: 9 BHS Progress Note (SOAP) Subjective: DIARRHEA DUE TO OPIATE WITHDRAWAL REPORT PEPTOMISMOUTH DOSE NOT WORK FOR HIM WELL IMODIUM TABLET CASE DISCUSS WITH PHARMACIST WHO WILL OBTAIN LIQUID IMODIUM FROM MAIN FACILITY AMBULATING WITH WALKER ALERT DENIES DIZZINESS Objective: 11/21/18 11:50 Vital Signs Temperature 97.4 F L 11/21/18 09:22 Pulse Rate 68 11/21/18 09:22 Respiratory Rate 18 11/21/18 09:22 Blood Pressure 103/68 11/21/18 09:22 O2 Sat by Pulse Oximetry (%) Laboratory Last Values WBC 6.7 K/mm3 (4.0-10.0) 11/20/18 08:50 RBC 4.43 M/mm3 (4.00-5.60) 11/20/18 08:50 Hgb 13.5 GM/dL (11.7-16.9) 11/20/18 08:50 Hct 40.3 % (35.4-49) 11/20/18 08:50 MCV 91.0 fl (80-96) 11/20/18 08:50 MCH 30.5 pg (25.7-33.7) 11/20/18 08:50 MCHC 33.5 g/dl (32.0-35.9) 11/20/18 08:50 RDW 14.6 % (11.9-15.9) 11/20/18 08:50 Plt Count 264 K/MM3 (134-434) 11/20/18 08:50 MPV 9.8 fl (7.5-11.1) 11/20/18 08:50 Sodium 139 mmol/L (136-145) 11/20/18 08:50 Potassium 4.6 mmol/L (3.5-5.1) 11/20/18 08:50 Chloride 104 mmol/L (98-107) 11/20/18 08:50 Carbon Dioxide 28 mmol/L (21-32) 11/20/18 08:50 Anion Gap 7 MMOL/L (8-16) L 11/20/18 08:50 BUN 14.2 mg/dL (7-18) 11/20/18 08:50 Creatinine 0.8 mg/dL (0.55-1.3) 11/20/18 08:50 Est GFR (CKD-EPI)AfAm 106.38 11/20/18 08:50 Est GFR (CKD-EPI)NonAf 91.79 11/20/18 08:50 Random Glucose 110 mg/dL (74-106) H 11/20/18 08:50 Calcium 9.2 mg/dL (8.5-10.1) 11/20/18 08:50 Total Bilirubin 0.3 mg/dL (0.2-1) 11/20/18 08:50 AST 15 U/L (15-37) 11/20/18 08:50 ALT 18 U/L (13-61) 11/20/18 08:50 Alkaline Phosphatase 101 U/L (45-117) 11/20/18 08:50 Total Protein 7.6 g/dl (6.4-8.2) 11/20/18 08:50 Albumin 4.0 g/dl (3.4-5.0) 11/20/18 08:50 Urine Color Yellow 11/20/18 11:20 Urine Appearance Clear 11/20/18 11:20 Urine pH 6.0 (5.0-8.0) 11/20/18 11:20 Ur Specific [place] 1.021 (1.010-1.035) 11/20/18 11:20 Urine Protein Negative (NEGATIVE) 11/20/18 11:20 Urine Glucose (UA) Negative (NEGATIVE) 11/20/18 11:20 Urine Ketones Negative (NEGATIVE) 11/20/18 11:20 Urine Blood Negative (NEGATIVE) 11/20/18 11:20 Urine Nitrite Negative (NEGATIVE) 11/20/18 11:20 Urine Bilirubin Negative (NEGATIVE) 11/20/18 11:20 Urine Urobilinogen 0.2 mg/dL (0.2-1.0) 11/20/18 11:20 Ur Leukocyte Esterase Negative (NEGATIVE) 11/20/18 11:20 RPR Titer Nonreactive (NONREACTIVE) 11/20/18 08:50 LAB NOTED Assessment: 11/21/18 11:50 OPIATE WITHDRAWAL SX Plan: CONTINUE OPIATE DETOX
[2018-11-21] MEDS ORDERED: NICOTINE POLACRILEX 4 MG GUM BUC PRN (14:58)
[2018-11-21] MEDS: THIAMINE HCL 100 MG TABLET (FP) PO SCH (21:17)
[2018-11-22] MEDS: diazePAM 5 MG TABLET PO PRN ×2 (07:33→12:31)
[2018-11-22] MEDS ORDERED: METHADONE HCL 10 MG TABLET (FOR DETOX USE ONLY) ONE (08:56)
[2018-11-22] MEDS ORDERED: METHADONE HCL 5 MG TABLET (FOR DETOX USE ONLY) ONE (08:56)
[2018-11-22] MEDS ORDERED: METHADONE (DETOX) 10 MG, METHADONE (DETOX) 5 MG PO ONE (10:00)
[2018-11-22] MEDS: PRENATAL VITAMINS W/ FOLIC ACID TABLET (FP) PO SCH (10:09)
[2018-11-22] MEDS ORDERED: LACTULOSE 20 GM/30 ML UDC (FOR ORAL USE ONLY) PO PRN (12:45)
--- NOTE | 2018-11-22 12:52 | PN ---
BHS COWS - Scale Resting Pulse: 0= [place] 80 or Below Sweatin= Chills/Flushing Restless Observation: 1= Difficult to Sit Still Pupil Size: 0= Normal to Room Light Bone or Joint Aches: 2= Severe Diffuse Aches Runny Nose/ Eye Tearin= Runny Nose/Eyes GI Upset > 30mins: 1= Stomach Cramp Tremor Observation of Outstretched Hands: 1= Tremor [place], Not Seen Yawning Observation: 1= 1-2x During Session Anxiety or Irritability: 1=Feels Anxious/Irritable Goose Flesh Skin: 0=Smooth Skin COWS Score: 10 BHS Progress Note (SOAP) Subjective: patient c/o of back pain, interrupted, chills, sweats Objective: 11/22/18 12:46 Vital Signs Temperature 95.8 F L 11/22/18 09:20 Pulse Rate 61 11/22/18 09:20 Respiratory Rate 18 11/22/18 09:20 Blood Pressure 96/59 L 11/22/18 09:20 O2 Sat by Pulse Oximetry (%) Laboratory Last Values WBC 6.7 K/mm3 (4.0-10.0) 11/20/18 08:50 RBC 4.43 M/mm3 (4.00-5.60) 11/20/18 08:50 Hgb 13.5 GM/dL (11.7-16.9) 11/20/18 08:50 Hct 40.3 % (35.4-49) 11/20/18 08:50 MCV 91.0 fl (80-96) 11/20/18 08:50 MCH 30.5 pg (25.7-33.7) 11/20/18 08:50 MCHC 33.5 g/dl (32.0-35.9) 11/20/18 08:50 RDW 14.6 % (11.9-15.9) 11/20/18 08:50 Plt Count 264 K/MM3 (134-434) 11/20/18 08:50 MPV 9.8 fl (7.5-11.1) 11/20/18 08:50 Sodium 139 mmol/L (136-145) 11/20/18 08:50 Potassium 4.6 mmol/L (3.5-5.1) 11/20/18 08:50 Chloride 104 mmol/L (98-107) 11/20/18 08:50 Carbon Dioxide 28 mmol/L (21-32) 11/20/18 08:50 Anion Gap 7 MMOL/L (8-16) L 11/20/18 08:50 BUN 14.2 mg/dL (7-18) 11/20/18 08:50 Creatinine 0.8 mg/dL (0.55-1.3) 11/20/18 08:50 Est GFR (CKD-EPI)AfAm 106.38 11/20/18 08:50 Est GFR (CKD-EPI)NonAf 91.79 11/20/18 08:50 Random Glucose 110 mg/dL (74-106) H 11/20/18 08:50 Calcium 9.2 mg/dL (8.5-10.1) 11/20/18 08:50 Total Bilirubin 0.3 mg/dL (0.2-1) 11/20/18 08:50 AST 15 U/L (15-37) 11/20/18 08:50 ALT 18 U/L (13-61) 11/20/18 08:50 Alkaline Phosphatase 101 U/L (45-117) 11/20/18 08:50 Ammonia 52.50 umol/L (11-32) H 11/22/18 07:00 Total Protein 7.6 g/dl (6.4-8.2) 11/20/18 08:50 Albumin 4.0 g/dl (3.4-5.0) 11/20/18 08:50 Urine Color Yellow 11/20/18 11:20 Urine Appearance Clear 11/20/18 11:20 Urine pH 6.0 (5.0-8.0) 11/20/18 11:20 Ur Specific [place] 1.021 (1.010-1.035) 11/20/18 11:20 Urine Protein Negative (NEGATIVE) 11/20/18 11:20 Urine Glucose (UA) Negative (NEGATIVE) 11/20/18 11:20 Urine Ketones Negative (NEGATIVE) 11/20/18 11:20 Urine Blood Negative (NEGATIVE) 11/20/18 11:20 Urine Nitrite Negative (NEGATIVE) 11/20/18 11:20 Urine Bilirubin Negative (NEGATIVE) 11/20/18 11:20 Urine Urobilinogen 0.2 mg/dL (0.2-1.0) 11/20/18 11:20 Ur Leukocyte Esterase Negative (NEGATIVE) 11/20/18 11:20 RPR Titer Nonreactive (NONREACTIVE) 11/20/18 08:50 elevated ammonia levels, repeat ammonia levels Assessment: 11/22/18 12:48 Patient Ao x3 no acute distress, full ROM ambulating independently with rolling walker no gait disturbance withdrawal sx Elevated ammonia levels Plan: increase PO fluids Lactulose TID repeat ammonia levels in Am continue detox continue to monitor
[2018-11-22 13:24] VITALS: BP 113/74; PULSE 63; TEMP 96.8
--- NOTE | 2018-11-22 13:39 | PN ---
BHS Progress Note Note: Patient left AMA, not receptive to interventions, patient to follow up with PCP.
--- NOTE | 2018-11-22 13:41 | DS ---
[facility] Detox Discharge Summary Admission Date: 11/19/18 Discharge Date: 11/22/18 - History Present History: Opioid Dependence, Sedative Dependence Additional Comments: patient stable, follow up with PCP, if worsening symptoms seek medical attention at local ED Pertinent Past History: Laboratory Tests 11/20/18 11/20/18 11/20/18 08:50 08:50 08:50 WBC 6.7 RBC 4.43 Hgb 13.5 Hct 40.3 MCV 91.0 MCH 30.5 MCHC 33.5 RDW 14.6 Plt Count 264 MPV 9.8 Sodium 139 Potassium 4.6 Chloride 104 Carbon Dioxide 28 Anion Gap 7 L BUN 14.2 Creatinine 0.8 Est GFR (CKD-EPI)AfAm 106.38 Est GFR (CKD-EPI)NonAf 91.79 Random Glucose 110 H Calcium 9.2 Total Bilirubin 0.3 AST 15 ALT 18 Alkaline Phosphatase 101 Ammonia Total Protein 7.6 Albumin 4.0 Urine Color Urine Appearance Urine pH Ur Specific [place] Urine Protein Urine Glucose (UA) Urine Ketones Urine Blood Urine Nitrite Urine Bilirubin Urine Urobilinogen Ur Leukocyte Esterase RPR Titer Nonreactive 11/20/18 11/22/18 11:20 07:00 WBC RBC Hgb Hct MCV MCH MCHC RDW Plt Count MPV Sodium Potassium Chloride Carbon Dioxide Anion Gap BUN Creatinine Est GFR (CKD-EPI)AfAm Est GFR (CKD-EPI)NonAf Random Glucose Calcium Total Bilirubin AST ALT Alkaline Phosphatase Ammonia 52.50 H Total Protein Albumin Urine Color Yellow Urine Appearance Clear Urine pH 6.0 Ur Specific [place] 1.021 Urine Protein Negative Urine Glucose (UA) Negative Urine Ketones Negative Urine Blood Negative Urine Nitrite Negative Urine Bilirubin Negative Urine Urobilinogen 0.2 Ur Leukocyte Esterase Negative RPR Titer - Physical Exam Results Vital Signs: Vital Signs Temperature 96.8 F L 11/22/18 13:20 Pulse Rate 63 11/22/18 13:20 Respiratory Rate 18 11/22/18 13:20 Blood Pressure 113/74 11/22/18 13:20 O2 Sat by Pulse Oximetry (%) - Treatment Hospital Course: Discharged Condition Good Patient has Accepted a Rehab Referral to: Out Patient referrals - Medication Discharge Medications: Ambulatory Orders NK [No Known Home Medication] 02/06/17 - AMA Did Patient Leave Against Medical Advice: Yes
[2018-11-23] MEDS ORDERED: METHADONE HCL 10 MG TABLET (FOR DETOX USE ONLY) PO ONE (10:00)
[2018-11-24] MEDS ORDERED: METHADONE HCL 5 MG TABLET (FOR DETOX USE ONLY) PO ONE (06:00)
== END 2018-11-22 14:57 | disposition left against medical advice (07) | DRG 894 ==
LOC: YASAS 10:07 → Y3N 15:23
PROVIDERS: ADMIT Surgery; ATTEND Surgery
PROC: HZ2ZZZZ Detoxification Services for Substance Abuse Treatment (ICD-10-PCS; principal; 2018-11-19)
DX: F11.23 Opioid dependence with withdrawal (principal); E72.20 Disorder of urea cycle metabolism, unspecified; Z68.1 Body mass index [BMI] 19.9 or less, adult; F13.230 Sedative, hypnotic or anxiolytic dependence with withdrawal, uncomplicated; F17.210 Nicotine dependence, cigarettes, uncomplicated; B18.2 Chronic viral hepatitis C; M54.5 Low back pain; G89.29 Other chronic pain; R63.4 Abnormal weight loss; Z98.890 Other specified postprocedural states
CPT/HCPCS: 36415; 80053; 81003; 82140; 85027; 86593; J0735

== ENCOUNTER 2019-03-14 11:04 | Inpatient (IN) | payer OTHER ==
[2019-03-14 11:39] VITALS: BMI 22.8
--- NOTE | 2019-03-14 12:24 | HP ---
"COWS - Scale Resting Pulse: 0= [place] 80 or Below Sweatin= Chills/Flushing Restless Observation: 0= Sits Still Pupil Size: 0= Normal to Room Light Bone or Joint Aches: 1= Mild Discomfort Runny Nose/ Eye Tearin= Runny Nose/Eyes GI Upset > 30mins: 2= Nausea/Diarrhea Tremor Observation: 0= None Yawning Observation: 1= 1-2x During Session Anxiety or Irritability: 2=Irritable/Anxious Goose Flesh Skin: 0=Smooth Skin COWS Score: 9 CIWA Score - Admission Criteria OAS Guidelines: Admission for Medically Managed Detox: Requires at least one of the followin. CIWA greater than 12 2. Seizures within the past 24 hours 3. Delirium tremens within the past 24 hours 4. Hallucinations within the past 24 hours 5. Acute intervention needed for co occurring medical disorder 6. Acute intervention needed for co occurring psychiatric disorder 7. Severe withdrawal that cannot be handled at a lower level of care (continued vomiting, continued diarrhea, abnormal vital signs) requiring intravenous medication and/or fluids 8. Admitting History and Physical - Smoking History Smoking history: Former smoker Have you smoked in the past 12 months: No Aproximately how many cigarettes per day: 20 If you are a former smoker, when did you quit?: 12/20/2012 - Alcohol/Substance Use Hx Alcohol Use: No Admission [facility] Allergies/Adverse Reactions: Allergies Allergy/AdvReac Type Severity Reaction Status Date / Time Sulfa (Sulfonamide Allergy Unknown Verified 03/14/19 11:25 Antibiotics) [Sulfa(Sulfonamide Antibiotics)] prednisone AdvReac auditory/visual Verified 03/14/19 11:25 hallucinations History of Present Illness: his report was requested by: Rylie Ulloa | Reference #: [id number] Others' Prescriptions Patient Name: Raghu Sanchez Date: 1950 Address: [address] [place] [address] Sex: Male Rx Written Rx Dispensed Drug Quantity Days Supply Prescriber Name 02/27/2019 02/28/2019 hydromorphone 4 mg tablet 20 5 Bakari Perez MD 01/04/2019 01/04/2019 hydromorphone 4 mg tablet 40 10 Yvon Dietrich 11/15/2018 11/15/2018 hydromorphone 2 mg tablet 62 7 VarSamy tellezard P DO 11/09/2018 11/09/2018 hydromorphone 2 mg tablet 71 6 Vargeoff Lawrence P DO 11/02/2018 11/02/2018 hydromorphone 2 mg tablet 84 7 Varallanta Lawrence P DO 10/26/2018 10/29/2018 hydromorphone 2 mg tablet 60 5 Lenora Lawrence P DO 10/17/2018 10/17/2018 hydromorphone 2 mg tablet 180 15 Lenora Lawrence P DO 09/26/2018 10/04/2018 hydromorphone 4 mg tablet 180 30 Varallanta Lawrence P DO 09/26/2018 09/26/2018 hydromorphone 2 mg tablet 180 30 Varlotta Lawrence P DO 09/19/2018 09/21/2018 hydromorphone 2 mg tablet 60 5 Devyn García MD 08/13/2018 08/13/2018 hydromorphone 4 mg tablet 120 30 Lenora Lawrence P DO 05/30/2018 07/26/2018 tramadol hcl er 200 mg tablet 30 30 Vargeoff Lawrence P DO 07/11/2018 07/16/2018 hydromorphone 4 mg tablet 120 30 Lenora Lawrence P DO 07/06/2018 07/06/2018 hydromorphone 4 mg tablet 60 10 Vargeoff Lawrence P DO 05/30/2018 06/29/2018 tramadol hcl er 200 mg tablet 30 30 Vargeoff Lawrence P DO 06/22/2018 06/22/2018 hydromorphone 4 mg tablet 60 10 Vargeoff Lawrence P DO 06/15/2018 06/15/2018 hydromorphone 4 mg tablet 30 8 Vargeoff Lawrence P DO 06/06/2018 06/06/2018 hydromorphone 4 mg tablet 30 7 Varallanta Lawrence P DO 05/30/2018 05/31/2018 tramadol hcl er 200 mg tablet 30 30 Vargeoff Lawrence P DO 05/09/2018 05/09/2018 hydromorphone 2 mg tablet 30 15 Dean Partida MD 04/27/2018 04/30/2018 hydromorphone 2 mg tablet 10 10 Dean Partida MD 04/26/2018 04/27/2018 hydromorphone 2 mg tablet 6 3 Jared Watson C, DO 04/22/2018 04/24/2018 hydromorphone 2 mg tablet 4 2 Ancelmo Hairbakari 04/16/2018 04/16/2018 hydromorphone 2 mg tablet 10 10 Dean Partida MD 04/05/2018 04/07/2018 hydromorphone 2 mg tablet 20 10 Erosa, Gerardo A 03/30/2018 03/30/2018 hydromorphone 2 mg tablet 30 10 Erosa, Gerardo A 03/20/2018 03/21/2018 hydromorphone 2 mg tablet 40 10 Erosa, Gerardo A Patient Name: Raghu Sanchez Date: 1950 Address: [address] [place] [address] Sex: Male Rx Written Rx Dispensed Drug Quantity Days Supply Prescriber Name 09/19/2018 09/19/2018 hydromorphone 2 mg tablet 60 4 Devyn García MD 09/17/2018 09/17/2018 hydromorphone 2 mg tablet 30 2 Devyn García MD 09/14/2018 09/15/2018 hydromorphone 8 mg tablet 16 2 Devyn García MD 09/15/2018 09/15/2018 hydromorphone 2 mg tablet 30 1 Devyn García MD 09/13/2018 09/13/2018 hydromorphone 2 mg tablet 30 2 Devyn García MD 09/10/2018 09/10/2018 hydromorphone 2 mg tablet 30 2 Devyn García MD 09/07/2018 09/07/2018 hydromorphone 2 mg tablet 30 1 Devyn García MD 09/03/2018 09/04/2018 hydromorphone 2 mg tablet 30 1 Devyn García MD 09/04/2018 09/04/2018 hydromorphone 8 mg tablet 60 10 Devyn García MD 09/03/2018 09/03/2018 hydromorphone 8 mg tablet 8 1 Devyn García MD 08/31/2018 09/01/2018 hydromorphone 2 mg tablet 30 2 Devyn García MD 08/28/2018 08/29/2018 hydromorphone 8 mg tablet 30 5 Devyn García MD 08/28/2018 08/28/2018 hydromorphone 2 mg tablet 30 2 Devyn García MD pt claims he is planning to go to [facility] residential unit after d/c , no longer want to take Dilaudid rx , latest taken yesterday , current symptoms as above, was @ [facility] PSYCH unit 03/05-03/13 , prior 7 - week hospitalization [facility] since 01/08/19. Pt denies abuse of rx , sometimes took more than rx during the summer due to pain . Denies misuse or diversion of meds. per pharmacy called, meds were delivered bedside and pt declined to take the meds because they wer in a sealed bag . Left facility , declined to sign d/c paperwork and presented to PCP office today , referred to this facility . pt states he was interested in continuing the meds ( Dilaudid) if the rx had been sent to the pharmacy that he had specified , now does not want Dilaudid any more and wants to go to long-term residential stay . pmhx :osteopenia , L-sp frx , MDD denies SI / HI reports prior suicidal thoughts to hang himself, hyperthyroidism , r inguinal hernia , cts. C/L sp sx x 6 . Denies SI @ this time . utox + Bzo , pt states he was given Valium as mm relaxant during hospitalization . Exam Limitations: No Limitations - Ebola screening Have you traveled outside of the country in the last 21 days: No Have you had contact with anyone from an Ebola affected area: No Do you have a fever: No - Review of Systems Constitutional: Loss of Appetite EENT: reports: Other (reading glasses) Respiratory: reports: No Symptoms reported Cardiac: reports: No Symptoms Reported GI: reports: Diarrhea, Nausea : reports: No Symptoms Reported Musculoskeletal: reports: See HPI, Back Pain (known L-frx L1-T12) Integumentary: reports: No Symptoms Reported Neuro: reports: Unsteady Gait Endocrine: reports: See HPI Psychiatric: reports: Orientated x3, Agitated, Depressed Patient History - Patient Medical History Hx Anemia: No Hx Asthma: No Hx Chronic Obstructive Pulmonary Disease (COPD): No Hx Cancer: No Hx Cardiac Disorders: No Hx Congestive Heart Failure: No Hx Hypertension: No Hx Hypercholesterolemia: No Hx Pacemaker: No HX Cerebrovascular Accident: No Hx Seizures: No Hx Dementia: No Hx Diabetes: No Hx Gastrointestinal Disorders: No Hx Liver Disease: Yes (HEP C) Hx Genitourinary Disorders: No Hx Sexually Transmitted Disorders: No Hx Renal Disease (ESRD): No Hx Thyroid Disease: No Hx Human Immunodeficiency Virus (HIV): No (NEGATIVE HX last 01/22 negative) Hx Hepatitis C: Yes (not receiving any tx.) Hx Depression: No Hx Suicide Attempt: No Hx Bipolar Disorder: No Hx Schizophrenia: No - Patient Surgical History Past Surgical History: Yes Hx Neurologic Surgery: No Hx Cataract Extraction: No Hx Cardiac Surgery: No Hx Lung Surgery: No Hx Breast Surgery: No Hx Breast Biopsy: No Hx Abdominal Surgery: Yes (RT INGUINAL HERNIA REPAIR IN 2004) Hx Appendectomy: No Hx Cholecystectomy: No Hx Genitourinary Surgery: No Hx Section: No Hx Orthopedic Surgery: Yes (Lumbar fusion in 12/18, 01/2014/cervical laminrectomy in 06/2013, 11/2016) Hx Hysterectomy: No Other Surgical History: PTL GLOSSECTOMY; PALATO; SINUS SX;X 5 TONSILLECTOMY,c & [id number] Anesthesia Reaction: No - PPD History Date: 02/08/17 Results: 0 mm - Smoking Cessation Smoking history: Former smoker Have you smoked in the past 12 months: No Aproximately how many cigarettes per day: 20 If you are a former smoker, when did you quit?: 12/20/2012 Cigars Per Day: 0 Hx Chewing Tobacco Use: No Initiated information on smoking cessation: Yes 'Breaking Loose' booklet given: 03/14/19 - Substances abused Other Other (specify): HYDROMORPHONE Substance route: Oral Frequency: Daily Amount used: 24mg Age of first use: 62 Date of last use: 03/13/19 Admission Physical Exam BHS - Vital Signs Vital Signs: Vital Signs - 24 hr 03/14/19 11:33 Temperature 97.6 F Pulse Rate 70 Respiratory 16 Rate Blood Pressure 132/89 - Physical General Appearance: Yes: Mild Distress, Irritable, Anxious HEENTM: Yes: EOMI, Hearing grossly Normal, Normocephalic, Normal Voice, Other ( upper dentures, edentulous lower) Respiratory: Yes: Chest Non-Tender, Lungs Clear, Normal Breath Sounds, No Respiratory Distress, No Accessory Muscle Use Neck: Yes: No masses,lesions,Nodules, Trachea in good position Cardiology: Yes: Regular Rhythm, Regular Rate, S1, S2, Other (ekg 02/06/2017 QTc 450 ms , LVH, possible left atrial enlargment .) Abdominal: Yes: Non Tender, Soft Musculoskeletal: Yes: Back pain, Other (extensive scarring posterior midline trunk , increased thoracic kyphosis . unsteady gait , refused cane) Extremities: Yes: Normal Range of Motion, Non-Tender Neurological: Yes: Fully Oriented, Alert, Motor Strength 5/5, Depressed Affect Integumentary: Yes: Warm - Addiitonal Findings: for mitigation of current symptoms and pt's safety , pt to be seen by psychiatry - Diagnostic (1) Opioid use Current Visit: Yes Status: Chronic Breathalyzer - Breathalyzer Breathalyzer: 0 Urine Drug Screen - Test Device Lot number: [id number] Expiration date: 11/04/20 - Control Is test valid?: Yes - Results Drug screen NEGATIVE: No Urine drug screen results: BZO-Benzodiazepines Inpatient Rehab Admission - Rehab Decision to Admit Inpatient rehab admission?: No"
[2019-03-14] MEDS ORDERED: ACETAMINOPHEN 325 MG TABLET (FP) PO PRN ×2 (13:08)
[2019-03-14] MEDS ORDERED: DICYCLOMINE HCL 10 MG CAPSULE PO PRN (13:08)
[2019-03-14] MEDS ORDERED: BISMUTH SUBSALICYLATE 262 MG/15 ML BTL PO PRN (13:08)
[2019-03-14] MEDS ORDERED: MAGNESIUM CITRATE 300 ML BOTTLE PO PRN (13:08)
[2019-03-14] MEDS ORDERED: MAGNESIUM HYDROX 2400MG/30ML ORAL SUSPENSION 30 ML CUP PO PRN (13:08)
[2019-03-14] MEDS ORDERED: MAG HYDROX/AL HYDROX/SIMETH 30 ML UNIT-DOSE CUP PO PRN (13:08)
[2019-03-14] MEDS ORDERED: MENTHOL/PHENOL 1 EACH UD MM PRN (13:08)
[2019-03-14] MEDS: clonazePAM 0.5 MG TABLET PO PRN ×2 (16:46→21:11)
[2019-03-14] MEDS: cloNIDine HCL 0.1 MG TABLET PO PRN ×2 (16:46→21:10)
[2019-03-14] MEDS: hydrOXYzine PAMOATE 25 MG CAPSULE (FP) PO PRN ×2 (16:46→21:11)
[2019-03-14] MEDS: PROCHLORPERAZINE MALEATE 5 MG TABLET PO PRN (16:47)
[2019-03-14] MEDS ORDERED: LOPERAMIDE HCL 2 MG CAPSULE PO ONE (17:30)
[2019-03-14] MEDS: THIAMINE HCL 100 MG TABLET (FP) PO SCH (21:10)
[2019-03-14] MEDS: MELATONIN 5 MG TABLETS PO PRN (21:12)
[2019-03-15] MEDS: hydrOXYzine PAMOATE 25 MG CAPSULE (FP) PO PRN ×4 (03:16→21:15)
[2019-03-15] MEDS: clonazePAM 0.5 MG TABLET PO PRN ×4 (03:16→21:13)
[2019-03-15] MEDS: PRENATAL VITAMINS W/ FOLIC ACID TABLET (FP) PO SCH (09:32)
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
[2019-03-15 10:06] LABS: HEMATOCRIT 40.7 % (35.4-49); HEMOGLOBIN 13.9 GM/dL (11.7-16.9); MCH 32.1 pg (25.7-33.7); MEAN CELL VOLUME 94.2 fl (80-96); MEAN PLT VOLUME 9.2 fl (7.5-11.1); PLATELET COUNT 235 K/MM3 (134-434); RBC 4.32 M/mm3 (4.00-5.60); RDW 14.4 % (11.9-15.9); WHITE BLOOD COUNT 5.3 K/mm3 (4.0-10.0)
[2019-03-15 10:07] LABS: ALBUMIN 3.7 g/dl (3.4-5.0); BILIRUBIN,TOTAL 0.7 mg/dL (0.2-1); BLOOD UREA NITROGEN 12.2 mg/dL (7-18); CALCIUM 9.2 mg/dL (8.5-10.1); CREATININE 0.8 mg/dL (0.55-1.3); POTASSIUM 4.2 mmol/L (3.5-5.1); TOT PROT 6.8 g/dl (6.4-8.2)
--- NOTE | 2019-03-15 12:39 | PN ---
BHS COWS - Scale Resting Pulse: 0= [place] 80 or Below Sweatin= No chills or Flushing Restless Observation: 0= Sits Still Pupil Size: 0= Normal to Room Light Bone or Joint Aches: 1= Mild Discomfort Runny Nose/ Eye Tearin= Nasal Congestion GI Upset > 30mins: 1= Stomach Cramp Tremor Observation of Outstretched Hands: 1= Tremor [place], Not Seen Yawning Observation: 0= None Anxiety or Irritability: 1=Feels Anxious/Irritable Goose Flesh Skin: 0=Smooth Skin COWS Score: 5 BHS Progress Note (SOAP) Subjective: alert,irritable,anxious,pain in the body and back Objective: 03/15/19 12:36 Vital Signs Temperature 98.1 F 03/15/19 09:24 Pulse Rate 59 L 03/15/19 09:24 Respiratory Rate 18 03/15/19 09:24 Blood Pressure 105/59 L 03/15/19 09:24 O2 Sat by Pulse Oximetry (%) Laboratory Last Values WBC 5.3 K/mm3 (4.0-10.0) 03/15/19 08:00 RBC 4.32 M/mm3 (4.00-5.60) 03/15/19 08:00 Hgb 13.9 GM/dL (11.7-16.9) 03/15/19 08:00 Hct 40.7 % (35.4-49) 03/15/19 08:00 MCV 94.2 fl (80-96) 03/15/19 08:00 MCH 32.1 pg (25.7-33.7) 03/15/19 08:00 MCHC 34.0 g/dl (32.0-35.9) 03/15/19 08:00 RDW 14.4 % (11.9-15.9) 03/15/19 08:00 Plt Count 235 K/MM3 (134-434) 03/15/19 08:00 MPV 9.2 fl (7.5-11.1) 03/15/19 08:00 Sodium 140 mmol/L (136-145) 03/15/19 08:00 Potassium 4.2 mmol/L (3.5-5.1) 03/15/19 08:00 Chloride 107 mmol/L (98-107) 03/15/19 08:00 Carbon Dioxide 27 mmol/L (21-32) 03/15/19 08:00 Anion Gap 5 MMOL/L (8-16) L 03/15/19 08:00 BUN 12.2 mg/dL (7-18) 03/15/19 08:00 Creatinine 0.8 mg/dL (0.55-1.3) 03/15/19 08:00 Est GFR (CKD-EPI)AfAm 105.64 03/15/19 08:00 Est GFR (CKD-EPI)NonAf 91.15 03/15/19 08:00 Random Glucose 87 mg/dL (74-106) 03/15/19 08:00 Calcium 9.2 mg/dL (8.5-10.1) 03/15/19 08:00 Total Bilirubin 0.7 mg/dL (0.2-1) 03/15/19 08:00 AST 23 U/L (15-37) 03/15/19 08:00 ALT 31 U/L (13-61) 03/15/19 08:00 Alkaline Phosphatase 92 U/L (45-117) 03/15/19 08:00 Total Protein 6.8 g/dl (6.4-8.2) 03/15/19 08:00 Albumin 3.7 g/dl (3.4-5.0) 03/15/19 08:00 RPR Titer Nonreactive (NONREACTIVE) 03/15/19 08:00 Assessment: 03/15/19 12:37 withdrawal symptom Plan: continue clonidine and klonopine prn close monitoring
[2019-03-15] MEDS: PROCHLORPERAZINE MALEATE 5 MG TABLET PO PRN (13:20)
[2019-03-15] MEDS: LOPERAMIDE HCL 2 MG CAPSULE PO PRN (18:34)
[2019-03-15] MEDS: cloNIDine HCL 0.1 MG TABLET PO PRN (21:13)
[2019-03-15] MEDS: MELATONIN 5 MG TABLETS PO PRN (21:13)
[2019-03-15] MEDS: THIAMINE HCL 100 MG TABLET (FP) PO SCH (21:13)
[2019-03-16] MEDS: PRENATAL VITAMINS W/ FOLIC ACID TABLET (FP) PO SCH (10:41)
--- NOTE | 2019-03-16 11:37 | PN ---
BHS COWS - Scale Resting Pulse: 0= [place] 80 or Below Sweatin= Chills/Flushing Restless Observation: 0= Sits Still Pupil Size: 0= Normal to Room Light Bone or Joint Aches: 1= Mild Discomfort Runny Nose/ Eye Tearin= None GI Upset > 30mins: 0= None Tremor Observation of Outstretched Hands: 0= None Yawning Observation: 0= None Anxiety or Irritability: 1=Feels Anxious/Irritable Goose Flesh Skin: 0=Smooth Skin COWS Score: 3 BHS Progress Note (SOAP) Subjective: c/o mild anxiety and sweats. Objective: 03/16/19 11:37 Vital Signs 03/16/19 03/16/19 06:09 10:56 Temperature 97.9 F 97.1 F L Pulse Rate 56 L 73 Respiratory 16 16 Rate Blood Pressure 101/59 L 113/69 Lab Results WBC 5.3 K/mm3 (4.0-10.0) 03/15/19 08:00 RBC 4.32 M/mm3 (4.00-5.60) 03/15/19 08:00 Hgb 13.9 GM/dL (11.7-16.9) 03/15/19 08:00 Hct 40.7 % (35.4-49) 03/15/19 08:00 MCV 94.2 fl (80-96) 03/15/19 08:00 MCHC 34.0 g/dl (32.0-35.9) 03/15/19 08:00 RDW 14.4 % (11.9-15.9) 03/15/19 08:00 Plt Count 235 K/MM3 (134-434) 03/15/19 08:00 Sodium 140 mmol/L (136-145) 03/15/19 08:00 Potassium 4.2 mmol/L (3.5-5.1) 03/15/19 08:00 Chloride 107 mmol/L (98-107) 03/15/19 08:00 Carbon Dioxide 27 mmol/L (21-32) 03/15/19 08:00 Anion Gap 5 MMOL/L (8-16) L 03/15/19 08:00 BUN 12.2 mg/dL (7-18) 03/15/19 08:00 Creatinine 0.8 mg/dL (0.55-1.3) 03/15/19 08:00 Random Glucose 87 mg/dL (74-106) 03/15/19 08:00 Calcium 9.2 mg/dL (8.5-10.1) 03/15/19 08:00 Labs noted Assessment: 03/16/19 11:37 AOX3, in no acute respiratory distress. Full rom, ambulating in the unit. Mild Withdrawal symptoms. pt has completed his detox protocol but still c/o anxiety. Will keep him one more day and discharge tomorrow. 03/16/19 11:41 Plan: Continue vistaril prn. D/C in AM.
[2019-03-16] MEDS: LOPERAMIDE HCL 2 MG CAPSULE PO PRN ×2 (12:12→20:22)
[2019-03-16] MEDS: PROCHLORPERAZINE MALEATE 5 MG TABLET PO PRN (15:40)
[2019-03-16] MEDS: hydrOXYzine PAMOATE 25 MG CAPSULE (FP) PO PRN (19:23)
--- NOTE | 2019-03-16 21:15 | PN ---
[facility] Progress Note Note: I was admitting a patient in [facility] when I was notified by Ms Sunitajemima AsifBarbra Art that Mr. Sanchez is requesting to see me immediately. Patient was seen and evaluated in room. He reports that he has been requesting Dilaudid since morning and wants to be transferred to Psychiatric unit. He has prior admissions at [facility] Psych unit 03/05-03/13 and prior 7 -week hospitalization at [facility] since 01/08/19 and Psychiatric admission in 2014 at [facility] due to suicidal ideation. Patient verbalized suicidal ideation and he had a rolled knotted bed sheet in his hand. He states that if he is not given Dilaudid that we will not see him anymore. Patient indicates that he was recently discharged from psychiatric Hospital for suicidal ideation. Patient was admitted to detox from opioid dependence and is scheduled to be discharged tomorrow. 911 initiated and patient was sent to [facility] for further evaluation and treatment Vital Signs Temperature 99.4 F 03/16/19 21:10 Pulse Rate 92 H 03/16/19 21:10 Respiratory Rate 18 03/16/19 21:10 Blood Pressure 133/92 03/16/19 21:10 O2 Sat by Pulse Oximetry (%) Action: Transfer patient to [facility] Tracie
[2019-03-16] MEDS: THIAMINE HCL 100 MG TABLET (FP) PO SCH (22:40)
[2019-03-17] MEDS: PROCHLORPERAZINE MALEATE 5 MG TABLET PO PRN (02:46)
[2019-03-17] MEDS: LOPERAMIDE HCL 2 MG CAPSULE PO PRN (06:36)
--- NOTE | 2019-03-17 06:42 | HP ---
COWS - Scale Resting Pulse: 0= [place] 80 or Below Sweatin= Chills/Flushing Restless Observation: 0= Sits Still Pupil Size: 0= Normal to Room Light Bone or Joint Aches: 1= Mild Discomfort Runny Nose/ Eye Tearin= Runny Nose/Eyes GI Upset > 30mins: 2= Nausea/Diarrhea Tremor Observation: 0= None Yawning Observation: 1= 1-2x During Session Anxiety or Irritability: 2=Irritable/Anxious Goose Flesh Skin: 0=Smooth Skin COWS Score: 9 CIWA Score - Admission Criteria OASAS Guidelines: Admission for Medically Managed Detox: Requires at least one of the followin. CIWA greater than 12 2. Seizures within the past 24 hours 3. Delirium tremens within the past 24 hours 4. Hallucinations within the past 24 hours 5. Acute intervention needed for co occurring medical disorder 6. Acute intervention needed for co occurring psychiatric disorder 7. Severe withdrawal that cannot be handled at a lower level of care (continued vomiting, continued diarrhea, abnormal vital signs) requiring intravenous medication and/or fluids 8. Admitting History and Physical - Smoking History Smoking history: Former smoker Have you smoked in the past 12 months: No Aproximately how many cigarettes per day: 20 If you are a former smoker, when did you quit?: 12/20/2012 - Alcohol/Substance Use Hx Alcohol Use: No Admission ROS [facility] Allergies/Adverse Reactions: Allergies Allergy/AdvReac Type Severity Reaction Status Date / Time Sulfa (Sulfonamide Allergy Unknown Verified 03/14/19 11:25 Antibiotics) [Sulfa(Sulfonamide Antibiotics)] prednisone AdvReac auditory/visual Verified 03/14/19 11:25 hallucinations - Ebola screening Have you traveled outside of the country in the last 21 days: No Have you had contact with anyone from an Ebola affected area: No Do you have a fever: No Patient History - Patient Medical History Hx Anemia: No Hx Asthma: No Hx Chronic Obstructive Pulmonary Disease (COPD): No Hx Cancer: No Hx Cardiac Disorders: No Hx Congestive Heart Failure: No Hx Hypertension: No Hx Hypercholesterolemia: No Hx Pacemaker: No HX Cerebrovascular Accident: No Hx Seizures: No Hx Dementia: No Hx Diabetes: No Hx Gastrointestinal Disorders: No Hx Liver Disease: Yes (HEP C) Hx Genitourinary Disorders: No Hx Sexually Transmitted Disorders: No Hx Renal Disease (ESRD): No Hx Thyroid Disease: No Hx Human Immunodeficiency Virus (HIV): No (NEGATIVE HX last 01/22 negative) Hx Hepatitis C: Yes (not receiving any tx.) Hx Depression: No Hx Suicide Attempt: No Hx Bipolar Disorder: No Hx Schizophrenia: No - Patient Surgical History Past Surgical History: Yes Hx Neurologic Surgery: No Hx Cataract Extraction: No Hx Cardiac Surgery: No Hx Lung Surgery: No Hx Breast Surgery: No Hx Breast Biopsy: No Hx Abdominal Surgery: Yes (RT INGUINAL HERNIA REPAIR IN 2004) Hx Appendectomy: No Hx Cholecystectomy: No Hx Genitourinary Surgery: No Hx Section: No Hx Orthopedic Surgery: Yes (Lumbar fusion in 12/18, 01/2014/cervical laminrectomy in 06/2013, 11/2016) Hx Hysterectomy: No Other Surgical History: PTL GLOSSECTOMY; PALATO; SINUS SX;X 5 TONSILLECTOMY,c & /19 Anesthesia Reaction: No - PPD History Previous Implant?: No Date: 02/08/17 Results: 0 mm - Smoking Cessation Smoking history: Former smoker Have you smoked in the past 12 months: No Aproximately how many cigarettes per day: 20 If you are a former smoker, when did you quit?: 12/20/2012 Cigars Per Day: 0 Hx Chewing Tobacco Use: No Initiated information on smoking cessation: Yes - Substances abused Other Other (specify): HYDROMORPHONE Substance route: Oral Frequency: Daily Amount used: 24mg Age of first use: 62 Date of last use: 03/13/19 Admission Physical Exam BHS - Vital Signs Vital Signs: Vital Signs - 24 hr 03/16/19 03/16/19 03/16/19 10:56 13:07 17:37 Temperature 97.1 F L 97.2 F L 97.4 F L Pulse Rate 73 80 105 H Respiratory 16 18 18 Rate Blood Pressure 113/69 137/87 101/70 03/16/19 03/17/19 03/17/19 21:10 02:08 03:30 Temperature 99.4 F 96.7 F L Pulse Rate 92 H 96 H Respiratory 18 18 18 Rate Blood Pressure 133/92 127/86 03/17/19 06:01 Temperature 98.5 F Pulse Rate 69 Respiratory 18 Rate Blood Pressure 109/64 Breathalyzer - Breathalyzer Breathalyzer: 0 Urine Drug Screen - Test Device Lot number: [id number] Expiration date: 11/04/20 - Control Is test valid?: Yes - Results Drug screen NEGATIVE: No Urine drug screen results: BZO-Benzodiazepines
--- NOTE | 2019-03-17 06:55 | PN ---
[facility] Progress Note Note: Patient was brought back by 2 early childhood teacher according to security. As per the Cost Analyst, Ms. Aziza Mercer who spoke to the doctor at [place] patient had demanded for Dilaudid and when they could not provide that he walked out. Patient is to be discharged today. Close observation ordered for safety until patient is discharged. Nursing staff is to intermittently check and monitor patient.
[2019-03-17 09:08] VITALS: BP 127/77; PULSE 76; TEMP 99.1
--- NOTE | 2019-03-17 12:21 | DS ---
[facility] Detox Discharge Summary Admission Date: 03/14/19 Discharge Date: 03/17/19 - History Present History: Opioid Dependence Additional Comments: 69 years old male admitted on 03/14/19 for opiate withdrawal sx management medically supervision detox regimen sent to [facility] for suicidal ideation with gesture patient returns with two police officers patient stated that "I walk back here" patient demands dilaudid that he is prescribed hydromorphen 2 mg nine times daily Pertinent Past History: patient has watery diarrhea treated with imodium without effective vomiting x 1 on 03/16/19 patient required ER rule out c-diff patient can be discharged back to community if medically cleared from ER refuses discharge physical examination patient may return for opiate rehab - Physical Exam Results Vital Signs: Vital Signs Temperature 99.1 F 03/17/19 09:07 Pulse Rate 76 03/17/19 09:07 Respiratory Rate 18 03/17/19 09:07 Blood Pressure 127/77 03/17/19 09:07 O2 Sat by Pulse Oximetry (%) Pertinent Admission Physical Exam Findings: opiate withdrawal sx Laboratory Last Values WBC 5.3 K/mm3 (4.0-10.0) 03/15/19 08:00 RBC 4.32 M/mm3 (4.00-5.60) 03/15/19 08:00 Hgb 13.9 GM/dL (11.7-16.9) 03/15/19 08:00 Hct 40.7 % (35.4-49) 03/15/19 08:00 MCV 94.2 fl (80-96) 03/15/19 08:00 MCH 32.1 pg (25.7-33.7) 03/15/19 08:00 MCHC 34.0 g/dl (32.0-35.9) 03/15/19 08:00 RDW 14.4 % (11.9-15.9) 03/15/19 08:00 Plt Count 235 K/MM3 (134-434) 03/15/19 08:00 MPV 9.2 fl (7.5-11.1) 03/15/19 08:00 Sodium 140 mmol/L (136-145) 03/15/19 08:00 Potassium 4.2 mmol/L (3.5-5.1) 03/15/19 08:00 Chloride 107 mmol/L (98-107) 03/15/19 08:00 Carbon Dioxide 27 mmol/L (21-32) 03/15/19 08:00 Anion Gap 5 MMOL/L (8-16) L 03/15/19 08:00 BUN 12.2 mg/dL (7-18) 03/15/19 08:00 Creatinine 0.8 mg/dL (0.55-1.3) 03/15/19 08:00 Est GFR (CKD-EPI)AfAm 105.64 03/15/19 08:00 Est GFR (CKD-EPI)NonAf 91.15 03/15/19 08:00 Random Glucose 87 mg/dL (74-106) 03/15/19 08:00 Calcium 9.2 mg/dL (8.5-10.1) 03/15/19 08:00 Total Bilirubin 0.7 mg/dL (0.2-1) 03/15/19 08:00 AST 23 U/L (15-37) 03/15/19 08:00 ALT 31 U/L (13-61) 03/15/19 08:00 Alkaline Phosphatase 92 U/L (45-117) 03/15/19 08:00 Total Protein 6.8 g/dl (6.4-8.2) 03/15/19 08:00 Albumin 3.7 g/dl (3.4-5.0) 03/15/19 08:00 RPR Titer Nonreactive (NONREACTIVE) 03/15/19 08:00 lab noted - Treatment Hospital Course: Detox Protocol Followed, Detoxed Safely, Responded well, Discharged Condition Good, Rehab Referral Accepted Patient has Accepted a Rehab Referral to: medication assisted treatement program - Medication Discharge Medications: Ambulatory Orders Calcium Carbonate/Vitamin D3 [Oyster Shell Calcium-Vit D Tab] 1 each PO BID 11/23 Escitalopram Oxalate [Lexapro -] 10 mg PO DAILY 03/14/19 Gabapentin [Neurontin -] 300 mg PO Q8H 03/14/19 HYDROmorphone [Dilaudid -] 4 mg PO Q4H PRN 03/14/19 Methimazole 5 mg PO DAILY 03/14/19 - Diagnosis (1) Opioid dependence with withdrawal Status: Acute (2) Substance induced mood disorder Status: Suspected (3) Weight loss Status: Acute (4) Hepatitis C Status: Chronic Qualifiers: Viral hepatitis chronicity: chronic Hepatic coma status: without hepatic coma Qualified Code(s): B18.2 - Chronic viral hepatitis C (5) Nicotine dependence Status: Acute Qualifiers: Nicotine product type: cigarettes Substance use status: in withdrawal Qualified Code(s): F17.213 - Nicotine dependence, cigarettes, with withdrawal - AMA Did Patient Leave Against Medical Advice: No COWS (PN) - Opiate Withdrawal Resting Pulse: 0= [place] 80 or Below Sweatin= No chills or Flushing Restless Observation: 0= Sits Still Pupil Size: 0= Normal to Room Light Bone or Joint Aches: 0= None Runny Nose/ Eye Tearin= None GI Upset > 30mins: 2= Nausea/Diarrhea Tremor Observation of Outstretched Hands: 1= Tremor [place], Not Seen Yawning Observation: 0= None Anxiety or Irritability: 0= None Goose Flesh Skin: 0=Smooth Skin COWS Score: 3
== END 2019-03-17 12:07 | disposition short-term general hospital (02) | DRG 897 ==
LOC: YASAS 11:04 → Y3N 13:36
PROVIDERS: ADMIT Allergy & Immunology; ATTEND Allergy & Immunology
PROC: HZ2ZZZZ Detoxification Services for Substance Abuse Treatment (ICD-10-PCS; principal; 2019-03-14)
DX: F11.23 Opioid dependence with withdrawal (principal); R45.851 Suicidal ideations; F17.210 Nicotine dependence, cigarettes, uncomplicated; F19.24 Other psychoactive substance dependence with psychoactive substance-induced mood disorder; F32.9 Major depressive disorder, single episode, unspecified; B18.2 Chronic viral hepatitis C; R19.7 Diarrhea, unspecified; R63.4 Abnormal weight loss; Z68.22 Body mass index [BMI] 22.0-22.9, adult; Z98.890 Other specified postprocedural states; Z88.2 Allergy status to sulfonamides; Z88.8 Allergy status to other drugs, medicaments and biological substances
CPT/HCPCS: 36415; 80053; 85027; 86593; J0735

== ENCOUNTER 2019-03-17 11:54 | Emergency (ER) | payer OTHER ==
[2019-03-17 11:59] VITALS: BMI 22.8
[2019-03-17] MEDS ORDERED: SODIUM CHLORIDE 0.9% 500 ML INFUS.BAG IV ONE (12:15)
--- NOTE | 2019-03-17 12:19 | PDOC ---
History of Present Illness - General Chief Complaint: Diarrhea Stated Complaint: DIARRHEA Time Seen by Provider: 03/17/19 12:03 History Source: Patient Exam Limitations: No Limitations - History of Present Illness Initial Comments: 03/17/19 12:19 HPI 69-year-old male with history of Dilaudid dependence, benzodiazepine dependence , chronic back pain status post spinal surgeries including lumbar fusion, cervical laminectomy, depression, hepatitis C presenting with 4 days of watery brown diarrhea times multiple episodes per day. He describes his diarrhea as watery and dark-colored, averaging 4-5 episodes per day. No recent antibiotic use. no fevers, no abdominal pain.He is currently at [facility] after he was recently admitted at [facility] to psychiatric unit for suicidal ideation/ depression, discharged on 03/13/2019. He was recently started on Lexapro, and was requesting benzos while at detox. No current SI or HI. at [facility], patient has watery diarrhea treated with imodium without effective - with one episode of vomiting yesterday. sent to the ED to [facility] for C diff, refused discharge PE and able to be discharged to community if med cleared after evaluation. Denies fever, chills, chest pain, SOB, palpitation, dizziness, weakness, bladder and bowel problems, focal weakness/paresthesias, leg swelling/pain, rash. No sick contacts or travel. No new changes in medications. No suspicious food intake - has been in [facility] and inpatient psych this week. Allergies: prednisone, sulfa Past Medical History/PSH: as above Social history: Lives with family. No tobacco, ETOH or drug use. Meds: as documented in EMR Review of systems Constitutional: no fevers or chills. No weakness HEENT: no headache or dizziness. No congestion. No visual/hearing disturbances. CVS: no cp or syncope. Resp: no sob. No cough. Gastrointestinal: no abdominal pain, +diarrhea. +nausea/vomiting Genitourinary: no urinary sx, hematuria. MUSCULOSKELETAL: No joint pain and swelling. No neck or back pain. SKIN: no redness or skin changes, no discharge, no rash. No wounds. Hematologic: no easy bruising/bleeding. NEUROLOGIC: No headache, dizziness, LOC or altered mental status. No weakness, numbness or tingling. Psych: h/o anxiety. Allergic/Immunologic: no allergies All other systems reviewed and negative, or as documented in HPI. Physical exam General: Well appearing, awake and alert, NAD. HEENT: NCAT, PERRL, EOMI, clear conjunctiva, anicteric, moist mucus membranes, clear oropharynx, no oral lesions.. Neck: neck supple, FROM Resp: CTAB, normal and even respirations, no respiratory distress CVS: RRR, no murmurs, 2+ peripheral pulses throughout, no peripheral edema Abdomen: soft, NTND, no rebound or guarding. Back: nontender, normal inspection and ROM MSK: no edema, THOMSON x4, ROM intact. No clubbing or cyanosis. normal bulk and tone. Extremities: no calf tenderness Neuro: alert, oriented appropriately; no focal neurologic deficits Psych: Calm and cooperative, clear mentation. Skin: warm and well perfused, cap refill <2 sec, normal color, no rash or skin discoloration. 03/17/19 12:48 03/17/19 14:43 03/17/19 14:44 03/17/19 14:45 Past History - Past Medical History Allergies/Adverse Reactions: Allergies Allergy/AdvReac Type Severity Reaction Status Date / Time Sulfa (Sulfonamide Allergy Unknown Verified 03/17/19 11:59 Antibiotics) [Sulfa(Sulfonamide Antibiotics)] prednisone AdvReac auditory/visual Verified 03/17/19 11:59 hallucinations Home Medications: Ambulatory Orders Calcium Carbonate/Vitamin D3 [Oyster Shell Calcium-Vit D Tab] 1 each PO BID 11/23 Escitalopram Oxalate [Lexapro -] 10 mg PO DAILY 03/14/19 Gabapentin [Neurontin -] 300 mg PO Q8H 03/14/19 HYDROmorphone [Dilaudid -] 4 mg PO Q4H PRN 03/14/19 Methimazole 5 mg PO DAILY 03/14/19 Ondansetron HCl [Zofran] 4 mg PO TID PRN #9 tablet 03/17/19 Anemia: No Asthma: No Cancer: No Cardiac Disorders: No CVA: No COPD: No CHF: No Dementia: No Diabetes: No GI Disorders: No Disorders: No HTN: No Hypercholesterolemia: No Kidney Stones: No Liver Disease: Yes (HEP C) Psychiatric Problems: Yes (DEPRESSION) Seizures: No Thyroid Disease: No - Surgical History Abdominal Surgery: Yes (RT INGUINAL HERNIA REPAIR IN 2004) Appendectomy: No Cardiac Surgery: No Cholecystectomy: No Lung Surgery: No Neurologic Surgery: No Orthopedic Surgery: Yes (Lumbar fusion in 12/18, 01/2014/cervical laminrectomy in 06/2013, 11/2016) - Reproductive History Testicular Surgery: No - Immunization History Immunization Up to Date: Yes - Psycho Social/Smoking Cessation Hx Smoking Status: Yes Smoking History: Unknown if ever smoked Have you smoked in the past 12 months: No Number of Cigarettes Smoked Daily: 20 If you are a former smoker, when did you quit?: 12/20/2012 Cigars Per Day: 0 Information on smoking cessation initiated: No 'Breaking Loose' booklet given: 03/14/19 Hx Alcohol Use: No Drug/Substance Use Hx: No Substance Use Type: Opiates Hx Substance Use Treatment: Yes Abd/GI Specific PMHX - Complaint Specific PMHX Hepatitis: Yes Pancreatitis: No *Physical Exam - Vital Signs Last Vital Signs Temp Pulse Resp BP Pulse Ox 98.0 F 70 16 132/82 100 03/17/19 11:57 03/17/19 11:57 03/17/19 11:57 03/17/19 11:57 03/17/19 11:57 ED Treatment Course - LABORATORY CBC & Chemistry Diagram: 03/17/19 12:14 03/17/19 12:14 Medical Decision Making - Medical Decision Making 03/17/19 14:04 Vital Signs Temp Pulse Resp BP Pulse Ox 98.0 F 70 16 132/82 99 03/17/19 11:57 03/17/19 11:57 03/17/19 11:57 03/17/19 11:57 03/17/19 12:27 vitals wnl, no systemic findings, no fevers. no e/o withdrawal given zofran and IVF here, some nausea, gave stool samples, sent for C diff, cultures and wbc - pt can followup, will put in call back no abdominal pain, no peritoneal findings, doubt obstruction or pancreatitis. no lower quad tenderness sx do not appear to be from renal or biliary colic. he has been ham PO intake, given hydration here, ambulatory. prn imodium otc and rx zofran prn for nausea/vomiting 03/17/19 14:36 Spoke with Christy at [facility], confirmed the story he had finished his detox program at [facility] and is appropriate for discharge, he will be offered rehab facilities for his opioid addiction/dependence we will also provide as well and patient can apparently check with his insurance and see what is covered. He is medically cleared for discharge here and told to follow-up on his stool samples , information was also conveyed with [facility] and they are okay with the plan as he has been formally discharged from there as well. 03/17/19 14:45 03/17/19 14:47 Discharge - Discharge Information Problems reviewed: Yes Clinical Impression/Diagnosis: Diarrhea, Opioid withdrawal Condition: Good Disposition: HOME - Admission No - Additional Discharge Information Prescriptions: Ondansetron HCl [Zofran] 4 mg PO TID PRN #9 tablet PRN Reason: Nausea And/Or Vomiting - Follow up/Referral Referrals: Anabel Babin [Primary Care Provider] - - Patient Discharge Instructions Patient Printed Discharge Instructions: Diarrhea, DI for Opioid Addiction Additional Instructions: 1) Please follow-up with your primary care doctor in the next 1-2 days. Please call tomorrow for for any urgent issues. 2) You were given a copy of the tests performed today. Please bring the results with you and review them with your primary care doctor. Your laboratory / imaging results were normal, your stool samples were sent and cultures. 3) If you have any worsening of symptoms or any other concerns please return to the ED immediately. Return if worsening symptoms including fevers, headache, vomiting, visual or hearing disturbances, abdominal pain, chest pain, shortness of breath, syncope, dehydration, inability to take things by mouth/vomiting, altered mental status, or worsening concerning symptoms. 4) Please continue taking your home medications as directed. your medications on discharge include Zofran every 8 hours as needed for nausea/vomiting. side effects may include upset stomach, abdominal pain, vomiting, or diarrhea. do not drink alcohol with your medications. you should get rehab care for your opioid addiction you can take imodium as needed for diarrhea. that is available over the counter. Stay well hydrated and rest adequately. Make an appointment for your rehab/ primary evaluation.. If you cannot follow-up with your primary care doctor please return to the ED [facility] [place] [address] [id number] [address] [place] [address] Opioid Treatment Program (Methadone) [address] [facility] [id number] - Post Discharge Activity
[2019-03-17 12:21] LABS: BASO % 0.8 % (0-2.0); EOS % 3.3 % (0-4.5); HEMATOCRIT 40.6 % (35.4-49); HEMOGLOBIN 13.6 GM/dL (11.7-16.9); MCH 31.9 pg (25.7-33.7); MCHC 33.6 g/dl (32.0-35.9); MONO % 16.3 % (3.8-10.2); NEUT % 55.6 % (42.8-82.8); PLATELET COUNT 262 K/MM3 (134-434); RBC 4.27 M/mm3 (4.00-5.60); RDW 14.4 % (11.9-15.9); WHITE BLOOD COUNT 6.9 K/mm3 (4.0-10.0)
[2019-03-17 12:49] LABS: ALBUMIN 3.6 g/dl (3.4-5.0); BILIRUBIN,TOTAL 0.4 mg/dL (0.2-1); BLOOD UREA NITROGEN 13.2 mg/dL (7-18); CALCIUM 8.7 mg/dL (8.5-10.1); CREATININE 0.9 mg/dL (0.55-1.3); POTASSIUM 4.3 mmol/L (3.5-5.1); TOT PROT 6.8 g/dl (6.4-8.2)
[2019-03-17] MEDS ORDERED: ONDANSETRON 4 MG/2 ML VIAL IVPUSH ONE (14:02)
[2019-03-17] MEDS ORDERED: ONDANSETRON 4 MG/2 ML VIAL ONE (14:03)
[2019-03-17 14:32] VITALS: BP 135/72; PULSE 71; TEMP 98.3
[2019-03-17] MEDS ORDERED: LOPERAMIDE HCL 1 MG/5 ML UNIT DOSE CUP PO ONE (14:59)
[2019-03-17] MEDS ORDERED: LOPERAMIDE HCL 2 MG CAPSULE ONE (15:09)
== END 2019-03-17 15:39 | disposition home or self-care (01) ==
LOC: JER 11:54
PROC: 3E033GC Introduction of Other Therapeutic Substance into Peripheral Vein, Percutaneous Approach (ICD-10-PCS; principal; 2019-03-17)
DX: F11.23 Opioid dependence with withdrawal (principal); B18.2 Chronic viral hepatitis C; M54.89 Other dorsalgia; G89.29 Other chronic pain; F13.20 Sedative, hypnotic or anxiolytic dependence, uncomplicated; Z98.1 Arthrodesis status; Z88.2 Allergy status to sulfonamides; Z88.8 Allergy status to other drugs, medicaments and biological substances
CPT/HCPCS: 36415; 80053; 85025; 87045; 87046; 87205; 87324; 87449; 96374; 99283-25

== ENCOUNTER 2023-02-19 08:16 | Inpatient (IN) | payer OTHER ==
[2023-02-19 10:29] VITALS: BMI 20.7
[2023-02-19] MEDS ORDERED: guaiFENesin 600 MG TABLET.ER (FP) PO PRN (11:26)
[2023-02-19] MEDS ORDERED: BISMUTH SUBSALICYLATE 524 MG/30 ML PO PRN (11:26)
[2023-02-19] MEDS ORDERED: MAG HYDROX/AL HYDROX/SIMETH 30 ML UNIT-DOSE CUP PO PRN (11:26)
[2023-02-19] MEDS ORDERED: NALOXONE HCL 0.4 MG/ML VIAL IM PRN (11:26)
[2023-02-19] MEDS ORDERED: POLYETHYLENE GLYCOL (HEALTHYLAX) 3350 17 GM PACKET PO PRN (11:26)
[2023-02-19] MEDS ORDERED: DICYCLOMINE HCL 10 MG CAPSULE PO PRN (11:26)
[2023-02-19] MEDS ORDERED: BENZOCAINE/MENTHOL (CHLORASEPTIC ) LOZENGE MM PRN (11:26)
[2023-02-19] MEDS ORDERED: MAGNESIUM HYDROX 2400MG/30ML ORAL SUSPENSION 30 ML CUP PO PRN (11:26)
[2023-02-19] MEDS ORDERED: IBUPROFEN 600 MG TABLET (FP) PO PRN (11:26)
[2023-02-19] MEDS ORDERED: IBUPROFEN 400 MG TABLET (FP) PO PRN (11:26)
[2023-02-19] MEDS ORDERED: LORazepam 1 MG TABLET PO PRN (11:26)
[2023-02-19] MEDS ORDERED: NALOXONE HCL (KLOXXADO) 8 MG SPRAY NS PRN (11:26)
[2023-02-19] MEDS ORDERED: ACETAMINOPHEN 325 MG TABLET (FP) PO PRN (11:26)
[2023-02-19] MEDS ORDERED: METHOCARBAMOL 500 MG TABLET PO PRN (11:26)
[2023-02-19] MEDS ORDERED: BACLOFEN 10 MG TABLET (FP) PO PRN (11:48)
[2023-02-19] MEDS ORDERED: BENZONATATE 200 MG CAPSULE PO PRN (11:50)
[2023-02-19] MEDS ORDERED: cloNIDine HCL 0.1 MG TABLET ONE (11:58)
[2023-02-19] MEDS: cloNIDine HCL 0.1 MG TABLET PO PRN (12:11)
[2023-02-19] MEDS: LOPERAMIDE HCL 2 MG CAPSULE PO PRN (12:11)
[2023-02-19] MEDS ORDERED: methaDONE HCL 10 MG TABLET (FOR DETOX USE ONLY) PO ONE (12:30)
[2023-02-19] MEDS ORDERED: LORazepam 1 MG TABLET ONE (12:52)
[2023-02-19] MEDS: GABAPENTIN 300 MG CAPSULE PO SCH ×2 (14:14→22:02)
[2023-02-19] MEDS: LORazepam 1 MG TABLET PO SCH ×2 (17:34→22:01)
[2023-02-19] MEDS: NICOTINE POLACRILEX 2 MG GUM BUC PRN ×2 (17:55→22:07)
[2023-02-19] MEDS: MELATONIN 5 MG TABLETS PO SCH (22:00)
[2023-02-19] MEDS: THIAMINE HCL 100 MG TABLET (FP) PO SCH (22:01)
[2023-02-20] MEDS: LORazepam 1 MG TABLET PO SCH ×4 (05:53→22:09)
[2023-02-20] MEDS: GABAPENTIN 300 MG CAPSULE PO SCH ×3 (06:03→22:07)
[2023-02-20] MEDS ORDERED: methaDONE HCL 10 MG TABLET (FOR DETOX USE ONLY) PO ONE (10:00)
[2023-02-20] MEDS: PRENATAL VITAMINS W/ FOLIC ACID TABLET (FP) PO SCH (10:18)
[2023-02-20 10:20] LABS: HEMOGLOBIN 13.2 GM/dL (11.7-16.9); MCH 32.1 pg (25.7-33.7); MEAN CELL VOLUME 94.6 fl (80-96); MEAN PLT VOLUME 8.8 fl (7.5-11.1); PLATELET COUNT 151 10^3/uL (134-434); POTASSIUM 4.3 mmol/L (3.5-5.1); RBC 4.12 M/mm3 (4.00-5.60); RDW 13.4 % (11.9-15.9)
[2023-02-20 10:27] LABS: CALCIUM 8.7 mg/dL (8.5-10.1)
[2023-02-20 10:28] LABS: ALBUMIN 3.5 g/dl (3.4-5.0)
[2023-02-20 10:31] LABS: CREATININE 0.7 mg/dL (0.55-1.3)
[2023-02-20 10:32] LABS: BILIRUBIN,TOTAL 0.4 mg/dL (0.2-1)
[2023-02-20 10:33] LABS: TOT PROT 6.4 g/dl (6.4-8.2)
[2023-02-20] MEDS ORDERED: FLU VACCINE (FLULAVAL) PF 60 MCG/0.5 ML SYRINGE 2023-2024 IM ONE (10:52)
[2023-02-20] MEDS: MELATONIN 5 MG TABLETS PO SCH (22:07)
[2023-02-20] MEDS: THIAMINE HCL 100 MG TABLET (FP) PO SCH (22:08)
[2023-02-21] MEDS: LOPERAMIDE HCL 2 MG CAPSULE PO PRN (00:11)
[2023-02-21] MEDS: LORazepam 1 MG TABLET PO SCH ×4 (05:37→22:03)
[2023-02-21] MEDS: GABAPENTIN 300 MG CAPSULE PO SCH ×3 (05:39→22:02)
[2023-02-21] MEDS ORDERED: methaDONE HCL 10 MG TABLET (FOR DETOX USE ONLY) PO ONE ×2 (10:00)
[2023-02-21] MEDS: PRENATAL VITAMINS W/ FOLIC ACID TABLET (FP) PO SCH (10:16)
[2023-02-21] MEDS: NICOTINE POLACRILEX 2 MG GUM BUC PRN ×2 (15:21→17:10)
[2023-02-21] MEDS: cloNIDine HCL 0.1 MG TABLET PO PRN (17:07)
[2023-02-21] MEDS: MELATONIN 5 MG TABLETS PO SCH (22:01)
[2023-02-21] MEDS: THIAMINE HCL 100 MG TABLET (FP) PO SCH (22:02)
[2023-02-22] MEDS ORDERED: LORazepam 0.5 MG TABLET PO PRN
[2023-02-22] MEDS: LORazepam 0.5 MG TABLET PO SCH ×4 (05:45→22:03)
[2023-02-22] MEDS: GABAPENTIN 300 MG CAPSULE PO SCH ×3 (05:46→22:04)
[2023-02-22] MEDS: NICOTINE POLACRILEX 2 MG GUM BUC PRN ×2 (08:39→17:41)
[2023-02-22] MEDS ORDERED: methaDONE HCL 10 MG TABLET (FOR DETOX USE ONLY) PO ONE (10:00)
[2023-02-22] MEDS: PRENATAL VITAMINS W/ FOLIC ACID TABLET (FP) PO SCH (10:03)
[2023-02-22] MEDS: THIAMINE HCL 100 MG TABLET (FP) PO SCH (22:04)
[2023-02-22] MEDS: MELATONIN 5 MG TABLETS PO SCH (22:04)
[2023-02-23] MEDS ORDERED: LORazepam 0.5 MG TABLET PO ONE (05:00)
[2023-02-23] MEDS: GABAPENTIN 300 MG CAPSULE PO SCH ×2 (05:51→13:16)
[2023-02-23] MEDS ORDERED: methaDONE HCL 10 MG TABLET (FOR DETOX USE ONLY) PO ONE (10:00)
[2023-02-23] MEDS: PRENATAL VITAMINS W/ FOLIC ACID TABLET (FP) PO SCH (10:44)
[2023-02-23] MEDS: NICOTINE POLACRILEX 2 MG GUM BUC PRN (11:27)
[2023-02-23 16:47] VITALS: BP 152/91; PULSE 73; RESP 18; TEMP 98
== END 2023-02-23 17:02 | disposition home or self-care (01) | DRG 897 ==
LOC: YASAS 08:16 → Y3N 11:51
PROVIDERS: ADMIT Allergy & Immunology; ATTEND Surgery
PROC: HZ2ZZZZ Detoxification Services for Substance Abuse Treatment (ICD-10-PCS; principal; 2023-02-19)
DX: F11.23 Opioid dependence with withdrawal (principal); F13.20 Sedative, hypnotic or anxiolytic dependence, uncomplicated; F10.230 Alcohol dependence with withdrawal, uncomplicated; F17.210 Nicotine dependence, cigarettes, uncomplicated; M54.50 Low back pain, unspecified; G89.29 Other chronic pain; Z20.822 Contact with and (suspected) exposure to COVID-19; Z88.2 Allergy status to sulfonamides; Z88.8 Allergy status to other drugs, medicaments and biological substances
CPT/HCPCS: 36415; 80053; 85027; 86780; 87635; 93005; 93010